=== PATIENT | female | born 1965 | race Caucasian/White ===

== ENCOUNTER 2020-02-17 07:39 | Inpatient (IN) ==
--- NOTE | 2020-02-11 16:18 | Anesthesiology Consultation ---
Date of Service February 11, 2020 Assessment & Plan (1) Encounter for pre-operative examination: Chart Review Chart Review: Acceptable Risk for Surgery (pending Covid testing) and Patient NOT seen in Pre Admission Testing - Check BSG AM DOS - Check test AM DOS Per nursing assessment, pt resides in [facility]. No known contact with PUIs or Covid positive people. No current Covid related symptoms or history of Covid testing. Will need Covid testing per guidelines before surgery. Seen by PCP 02/09/2020 =" she is medically cleared for the operation." History Surgery Operation Date: 02/17/20 10:05 Proposed Procedures p Right Anterior Total Hip Arthroplasty - Mauricio Leon DO Height/Weight Height: 5 ft 6 in Weight: 59.421 kg Allergies Allergy/AdvReac Type Severity Reaction Status Date / Time No Known Allergies Allergy Verified 02/10/20 15:04 Medications Home Medications Medication Instructions Recorded Confirmed Last Taken cholecalciferol (vitamin D3) 10,000 unit PO 3XWK 10/31/19 02/10/20 Unknown [Vitamin D3] ibuprofen 400 mg PO DAILY PRN 10/31/19 02/10/20 Unknown insulin aspart U-100 [Novolog 4 unit SUBCUT TID 10/31/19 02/10/20 Unknown U-100 Insulin aspart] insulin glargine [Lantus U-100 20 unit SUBCUT HS 10/31/19 02/10/20 Unknown Insulin] naproxen sodium [Aleve] 440 mg PO DAILY PRN 10/31/19 02/10/20 Unknown semaglutide [Ozempic] 0.5 mg SUBCUT QDD 10/31/19 02/10/20 Unknown turmeric root extract 500 mg PO 3XWK 10/31/19 02/10/20 Unknown vit C,Y-Uf-zhcty-lutein-zeaxan 1 tab PO 3XWK 10/31/19 02/10/20 Unknown [PreserVision AREDS-2] vitamin E 800 unit PO 3XWK 10/31/19 02/10/20 Unknown Past Medical History Medical History Cochlear hearing loss, bilateral Diabetes mellitus, type 2 Initially diagnosed with gestational diabetes/subsequent T2DM dx- IDDM Macular degeneration Osteoarthritis Past Family History Family History Aunt Family history of diabetes mellitus Past Surgical History Surgical History History of cochlear implant LEFT History of tonsillectomy and adenoidectomy Hx of section X3 Social History Smoking Status: Former smoker Hx Alcohol Use: Yes Alcohol type: beer alcohol intake frequency: a few times a week Hx Substance Use: No Testing Laboratory Results 02/09/20= WBC: 8.63 H/H: 13.6/41.7 PLATELETS: 249 SODIUM: 140 POTASSIUM: 4.5 CHLORIDE: 101 CO2: 27 BUN: 8 CREATININE: 0.7 GLUCOSE: 81 Electrocardiogram Date: 11/06/19 Findings: + NSR @ (80) Chest X-Ray Date: 11/06/19 Findings: + NAD Stress Test Date: 11/19/19 Type: DSE Resting EF: 55 to 59% Resting LV Function: normal Resting RWMA: + none Valvular Disease: no significant valvular disease Stress echo was negative for inducible ischemia. Stress EKG response showed no evidence of ischemia. Occasional PACs were noted during stress. Nonsustained supraventricular tachycardia was noted during stress. Borderline concentric LVH. EF with stress equals 85%.
--- NOTE | 2020-02-15 09:33 | History & Physical Report ---
Date of Service February 17, 2020 Assessment & Plan (1) Degenerative joint disease of right hip: I have indicated the patient for right anterior total hip replacement. The risks, benefits and complications of surgery were explained to the patient which include but not limited to infection, acute blood loss, DVT/PE, injury to nerves, vessels, bone, soft tissue, arthrofibrosis, chronic pain, failure of the prosthesis, hip dislocation, leg length discrepancy, need for additional surgery, cardiac and pulmonary events and . The patient wished to proceed with surgery and informed consent was obtained at this time. We will plan for 81mg ASA BID post-operatively for DVT prophylaxis. Upon discharge the patient will be discharged home with home health services. Appropriate clearances by PCP were obtained. History of Present Illness Chief Complaint: Right hip pain/AVN/djd Primary Care Provider: Ranjan Orozco MD The patient is a 54 year old female who presents with complaints of severe right hip pain, AVN/DJD. The patient has failed outpatient conservative treatments to this point which included NSAIDs and a home exercise/walking program. The patient's pain and limited function have progressed to the point where they severely hinder their activities of daily living and they no longer tolerate exercise programs. They are requesting to proceed with total hip replacement surgery. Allergies Allergy/AdvReac Type Severity Reaction Status Date / Time No Known Allergies Allergy Verified 02/17/20 08:08 Home Medications Home Medications Medication Instructions Recorded Confirmed Type cholecalciferol (vitamin D3) 10,000 unit PO 3XWK 10/31/19 02/12/20 History [Vitamin D3] ibuprofen 400 mg PO DAILY PRN 10/31/19 02/12/20 History insulin aspart U-100 [Novolog 4 unit SUBCUT TID 10/31/19 02/12/20 History U-100 Insulin aspart] insulin glargine [Lantus U-100 20 unit SUBCUT HS 10/31/19 02/12/20 History Insulin] naproxen sodium [Aleve] 440 mg PO DAILY PRN 10/31/19 02/12/20 History semaglutide [Ozempic] 0.5 mg SUBCUT QDD 10/31/19 02/12/20 History turmeric root extract 500 mg PO 3XWK 10/31/19 02/12/20 History vit C,E-Ws-zlygv-lutein-zeaxan 1 tab PO 3XWK 10/31/19 02/12/20 History [PreserVision AREDS-2] vitamin E 800 unit PO 3XWK 10/31/19 02/12/20 History Past Med/Surg History Medical History Cochlear hearing loss, bilateral Diabetes mellitus, type 2 Initially diagnosed with gestational diabetes/subsequent T2DM dx- IDDM Macular degeneration Osteoarthritis Surgical History History of cochlear implant LEFT History of tonsillectomy and adenoidectomy Hx of section X3 Family History Aunt Family history of diabetes mellitus Social History Preferred Language: Frisian Communication Ability: Impaired Communication Ability Comment: IMPAIRED HEARING-[id number] IMPLANT Stock Supervisor Required: No Beliefs That Will Affect Care: None Current Living Situation: Family Other Information That Helps Us Care for You: No Feels Safe at Home: Yes Safety Concerns: Feels Safe At This Time Smoking Status: Former smoker Do You Dip or Chew Tobacco: No ; Smoking End Date: QUIT 2007 ; Second Hand Exposure: Yes (FAMILY SMOKES) ; Hx Alcohol Use: Yes Alcohol type: beer Hx Substance Use: No Review of Systems Review of Systems: All systems reviewed & are unremarkable except as noted in HPI & below Constitutional: as per Subjective / HPI Physical Exam Physical Exam: RLE NVSI +EHL/FHL/TA/GS SILT grossly, +2 DP pulse, compartments soft NT, limited painful ROM of the hip, antalgic gait. Constitutional: WD/WN, vitals as above Eyes: PERRL, conjunctivae normal, anicteric sclerae ENMT: external ear and nose normal, oropharynx normal Neck: trachea midline, no thyromegaly Respiratory: normal respiratory effort, lungs clear to auscultation Cardiovascular: RRR, no murmur, no edema Gastrointestinal (Abdomen): normal bowel sounds, soft, nontender, no hepatosplenomegaly Musculoskeletal: no cyanosis or clubbing, extremities motor strength 5/5 Skin: no rashes, warm and dry Neurologic: patellar DTR's 2+ bilat, sensation intact Psychiatric: A+Ox3, euthymic affect Lymphatic: no cervical or axillary lymphadenopathy Results & Data Results & Data ([facility]) Diagnostic Findings Multiple views of the hip demonstrates severe DJD and AVN involving the femoral head with complete loss of the joint space. +osteophytes, +sclerosis, +subchondral cysts.
[~2020-02-17 07:39] MED LIST: ACETAMINOPHEN 500 MG TAB PO SCH; BUPIVACAINE 0.5 % 5 MG/1 ML PF 10ML VIAL ONE; CEFAZOLIN 1000MG 1,000 MG/7.5 ML SYR IV SCH; CeleBREX 200 MG CAP PO SCH; FAMOTIDINE 20 MG TAB PO SCH; LR 500ML BOLUS, THEN 15ML/HR IV SCH; METOCLOPRAMIDE HCL 10 MG TABLET PO SCH; ROPIVACAINE 0.5% HCL/PF 150 MG, BUPIVACAINE 0.5% MPF 30 ML, EPINEPHrine 30MG/30ML (OR U... INSTIL SCH; TRANEXAMIC ACID 1,000 MG **IV Intra-op IV SCH; TRANEXAMIC ACID 1,000 MG **IV Pre-op IV SCH; dexAMETHasone 4 MG TAB PO SCH
[2020-02-17 08:34] LABS: INR 1.1 (0.9-1.1); Prothrombin Time 11.2 Seconds (9.0-12.0)
[2020-02-17] MEDS ORDERED: PROPOFOL IV EMULSION 10 MG/ML 20 ML VIAL IV ONE (09:12)
[2020-02-17] MEDS ORDERED: MIDAZOLAM HCL 1 MG/ML 2ML VIAL ONE ×2 (09:12→09:13)
[2020-02-17] MEDS ORDERED: ORTHO JOINT ANESTHETIC ONE (09:44)
[2020-02-17] MEDS ORDERED: BACITRACIN INJ 50,000 UNIT VIAL ONE (09:44)
--- NOTE | 2020-02-17 09:46 | History & Physical Bridge Note ---
Date of Service February 17, 2020 History & Physical Bridge Note I have examined the patient, reviewed the History & Physical and in the interval since the performance of the History & Physical I have noted the following changes of clinical significance: no changes noted
[2020-02-17] MEDS ORDERED: ATROPINE SULFATE 0.1 MG/ML 10ML SYR IV PRN (10:14)
[2020-02-17] MEDS ORDERED: ePHEDrine sulfate 50 MG/ML AMP IV PRN (10:14)
--- NOTE | 2020-02-17 11:50 | Post Operative Brief Note ---
Immediate Post Op Note v1 Date of Surgery February 17, 2020 Pre & Post Diagnosis Operation Date: 02/17/20 09:35 Pre-Op Diagnosis: Right hip osteoarthritis Post-Op Diagnosis: Right hip osteoarthritis I identified the patient and participated in the time-out.: Yes Procedure Operation Date: 02/17/20 09:35 Actual Procedures p Right Anterior Total Hip Arthroplasty(Right) - Mauricio Leon DO Surgeon Mauricio Leon DO Yield Loss Inspector Jose Kohli Estimated Blood Loss 155 Findings Consistent with Post-Op Diagnosis Fluids 1300 cc LR Specimens femoral head Anesthesia Type Spinal MAC Complications none Disposition Disposition: Recovery Room Overlapping Procedure I was present for: the critical portions of procedure. I was immediately available: during the entire case. Back up surgeon: was not required during procedure.
--- NOTE | 2020-02-17 11:52 | Operative Report ---
Post Operative Report Pre & Post Diagnosis Operation Date: 02/17/20 09:35 Pre-Op Diagnosis: Right hip osteoarthritis Post-Op Diagnosis: Right hip osteoarthritis I identified the patient and participated in the time-out.: Yes Procedure Operation Date: 02/17/20 09:35 Actual Procedures p Right Anterior Total Hip Arthroplasty(Right) - Mauricio Leon DO Surgeon Mauricio Leon DO Car Salesperson Jose Kohli Estimated Blood Loss 155 Findings Consistent with Post-Op Diagnosis Fluids 1300 cc LR Specimens femoral head Anesthesia Type Spinal MAC Complications none Disposition Disposition: Recovery Room Indications The patient is a 54-year-old female who presents with severe progressive right hip AVN/DJD who has failed outpatient conservative treatments. I indicated the patient for a anterior total hip replacement and the risks and benefits were explained in detail which include but not limited to infection, bleeding, blood clot, damage to surrounding bone, nerves, vessels, soft tissue, hip dislocation, failure of the prosthesis, leg length discrepancy, need for additional surgery and . The patient agreed to proceed with replacement of the hip and informed consent was obtained. Appropriate clearances were obtained. Description of Procedure COMPONENTS USED: [employer]phT[employer] hip system: Acetabulum size 52, femur size 8 standard offset, femoral head 36+0, liner 5236, acetabular screw 25 mm x 1. DESCRIPTION OF PROCEDURE: Following satisfactory spinal anesthesia, the patient was placed supine on the OR table. The left leg was placed in the well leg kaur and the right leg in the traction device. The right leg was prepared with ChloraPrep and draped sterilely. A surgical timeout was performed, patient identified and site maryann verified. Appropriate antibiotics were given. A standard anterior approach in the interval between the sartorius and tensor muscles was performed. Dissection was carried down through subcutaneous tissues. Electrocautery was utilized for hemostasis. Circumflex femoral vessels were identified, tied and ligated. The anterior capsular fat pad was removed and the capsulotomy was performed revealing the arthritic femoral neck and head. A femoral neck cut was made with reciprocating saw and the bone fragments removed. The acetabular self-retraining retractor was placed. Acetabular reaming was completed under fluoroscopic guidance, a 52 shell was impacted into an anatomic position and secured with a dome screw. Local anesthetic was placed and following irrigation, the polyethylene liner was placed. The femur was placed into position of external rotation, extension and adduction. Femoral canal was prepared up to the size 8 standard offset. Trial reduction with a 36+0 neck length head showed good soft tissue tension, leg lengths restored, and good fit and fill of the proximal canal using fluoroscopic landmarks. The hip was dislocated. The trial component was removed. The final implant was placed. The hip was irrigated with sterile saline solution and reduced. A Betadine soak was performed. After 3 minutes, the hip was once more irrigated with copious sterile saline solution with bacitracin. Fior-incisional soft tissue was injected utilizing [place] [employer]omix which includes a combination of Ropivicaine 0.5% 150mg, Bupivicaine 0.5%/Epinephrine 1:200,000 30ml, Toradol 30mg, Dexamethasone 4mg, Ketamine 10mg, Clonidine 100mcg and NSS 30ml solution. The capsule was then closed with 1-0 Vicryl interrupted figure of eight sutures. The fascia was closed with a running suture of #1 Vicryl, the subcutaneous tissues with 2-0 Vicryl and the skin with a running subcuticular stitch of 3-0 V-Loc. Dermabond prineo and a dry dressing were applied. The patient tolerated the procedure well and was transported to PACU in stable condition. Due to the complex nature of the procedure, the entire surgery was performed with the operational assistance of Jose kohli PA-C. The botany laboratory assistant, under direct supervision, was involved in the actual performance of all aspects of the surgical procedure including patient positioning, hemostasis, tissue retraction, instrument management and wound closure. I attest to the content of the Intraoperative Record and any orders documented therein. Any exceptions are noted below.
[2020-02-17] MEDS ORDERED: ePHEDrine sulfate 50 MG/ML SYR ONE (11:53)
[2020-02-17] MEDS ORDERED: PHENYLEPHRINE 100MCG/ML 5ML SYR ONE (11:53)
--- NOTE | 2020-02-17 12:03 | Fluoroscopy Report ---
FL hip RT 1V HISTORY: 54 years-old Female RT ANTERIOR HIP right hip total joint arthroplasty COMPARISON: None TECHNIQUE: 2 spot fluoroscopic images of the right hip were obtained utilizing 39.8 seconds fluorosco py time FINDINGS: Right hip total joint arthroplasty demonstrates satisfactory alignment. No acute fracture or retained foreign body identified. Expected postoperative soft tissue swelling and deep tissue air. Degenerati ve changes of the pubic symphysis. Osteoarthritis of the left hip. IMPRESSION: Fluoroscopic assistance as above. Please see operative report for further details. ACT 112: Negative or not required by law. The above report was generated using voice recognition software. It may contain grammatical, syntax o r spelling errors. Electronically signed by: Andrews Sharp M.D. 02/17/2020 12:01 PM
--- NOTE | 2020-02-17 12:59 | XRay Report ---
XR hip 1V RT w pelvis CLINICAL HISTORY: Right hip arthroplasty COMPARISON: None. DISCUSSION: There are postsurgical changes of a total right hip arthroplasty. The acetabular femoral components appear well seated. There is no dislocation. There is gas present within the soft tissues consistent with recent surgery. There is an equivocal cystic lesion within either the left acetabulum or femoral head. This is not optimally evaluated on the current study. IMPRESSION: 1. Post surgical changes of a total right hip arthroplasty 2. Equivocal 2 cm cystic lesion of the left femoral head or acetabulum. ACT 112: Negative or not required by law. Electronically signed by: Tian Villegas M.D. 02/17/2020 12:58 PM
--- NOTE | 2020-02-17 13:14 | Anesthesiology Progress Note ---
Date of Service February 17, 2020 Anesthesia Post Procedure Vital Signs Vital Signs: Temp Pulse Pulse Resp BP Pulse Ox 02/17/20 12:35 36.8 C 79 16 105/62 100 02/17/20 12:25 80 16 104/66 100 02/17/20 12:15 87 16 103/65 100 02/17/20 12:06 36.7 C 96 H 16 98/61 L 99 02/17/20 08:11 36.9 C 90 18 116/72 97 Pain Intensity Right Hip: Pain Intensity: 3 Transfer of Care Handoff Completed per policy Notes Mental Status: alert / awake / arousable and participated in evaluation Nausea / Vomiting: adequately controlled Pain: adequately controlled Airway Patency, RR, SpO2: stable & adequate BP & HR: stable & adequate Hydration State: stable & adequate Neuraxial Anesthesia: was administered and sensory block is resolving Anesthetic Complications: no major complications apparent and Pt Satisfied with anesthetic care
[2020-02-17] MEDS ORDERED: MAGNESIUM HYDROXIDE SUSP 30 ML UDC PO PRN (13:16)
[2020-02-17] MEDS ORDERED: HYDROmorphone INJ 0.5 MG/0.5 ML SYR IV PRN (13:16)
[2020-02-17] MEDS ORDERED: ONDANSETRON INJ 2 MG/ML 2 ML VIAL IV PRN (13:16)
[2020-02-17] MEDS ORDERED: bisacodyL 10 MG SUPP PR PRN (13:16)
[2020-02-17] MEDS ORDERED: NALOXONE HCL 0.4 MG/1 ML VIAL/CARP IV PRN (13:16)
[2020-02-17] MEDS ORDERED: METOCLOPRAMIDE HCL INJ 5 MG/ML 2 ML VIAL IV PRN (13:16)
[2020-02-17] MEDS ORDERED: OXYCODONE HCL IR 5 MG TAB (IMMEDIATE RELEASE) PO PRN (13:16)
[2020-02-17] MEDS ORDERED: PHARMACY GLYCEMIC MGMT CONSULT PRN (13:38)
--- NOTE | 2020-02-17 13:52 | Pharmacy Report ---
Glycemic Control Consultation - Date of Service February 17, 2020 - Scope Scope: Glycemic Pharmacist consulted for glycemic control and to write orders per [facility] inpatient glycemic control protocol. - Objective Weight: 59.3 kg Accuchecks BSG (last 24hrs): 02/17/20 08:13 POC Glucose 177 H - Recent Pertinent Medications Outpatient Anti-diabetic Regimen: * Ozempic 0.5 mg SQ weekly, Lantus 20 units SQ HS, Novolog 4 units SQ AC (doesn't use consistently) * A1c = 6.7% on 11/06/19 (will order for tomorrow) Risk Factors for Insulin Resistance: * Steroids: Dexamethasone 8 mg PO x 1 pre-op * Recent Surgery: POD#0 R BECKY * Diet: T2DM - Assessment & Plan Assessment & Plan: ASSESSMENT: * 54 yo F admitted for a R BECKY * Pre-op BSG was 177 mg/dL and patient did received dexamethasone preop. Patient took 20 units of Lantus last evening. * Will give the patient 25 units of Lantus (1.3 x home dose) tonight to account for steroid induced hyperglycemia. Novolog will be started based on weight and stress of 3. PLAN FOR INPATIENT GLYCEMIC CONTROL: * ADA & AACE recommend a goal blood sugar range 140-180 mg/dl for the majority of critically ill & non-critically ill patients. However, more stringent targets may be selected in individual cases. Will utilize more stringent goal of 110-140mg/dl based on patient age & comorbidities. Additionally, tighter glycemic control is warranted to facilitate wound/infection healing. * Basal insulin * Lantus 25 units SQ HS x 1 * Bolus insulin * NovoLog per scale ACHS or Q6hrs while NPO * Goal Range: Low 110 mg/dL - High 140 mg/dL * Correction Factor: 25 mg/dL/unit * Nutritional / Prandial insulin per carb ratio of 1 unit per 9 grams CHO consumed * Please note that the plan above was derived based on current level of insulin resistance and hospital stress. These recommendations are appropriate for inpatient admission only. Plan of care upon discharge will need to be reassessed to avoid potential outpatient hypo/hyperglycemia. Thank you.
[2020-02-17] MEDS ORDERED: GLUCAGON FOR INJ 1 MG VIAL IM PRN (14:00)
[2020-02-17] MEDS ORDERED: GLUCOSE 40% GEL 15 GM TUBE PO PRN (14:00)
[2020-02-17] MEDS ORDERED: CARBOHYDRATES FOR HYPOGLYCEMIA PO PRN (14:00)
[2020-02-17] MEDS ORDERED: DEXTROSE 50% 50 ML SYRINGE IV PRN (14:00)
[2020-02-17] MEDS ORDERED: GLUCOSE 10 TABS/TUBE PO PRN (14:00)
[2020-02-17] MEDS: SODIUM CHLORIDE 0.9% 1000ML 1,000 ML IV SCH (14:19)
[2020-02-17] MEDS: KETOROLAC TROMETHAMINE 15 MG/ML VIAL IV SCH ×2 (14:19→20:44)
[2020-02-17] MEDS: CEFAZOLIN 1000MG 1,000 MG/7.5 ML SYR IV SCH ×2 (14:19→21:56)
[2020-02-17] MEDS: ACETAMINOPHEN 500 MG TAB PO SCH ×2 (14:19→21:56)
--- NOTE | 2020-02-17 14:42 | Orthopedic Progress Note ---
Date of Service February 17, 2020 Assessment & Plan (1) Degenerative joint disease of right hip: s/p Right anterior BECKY -ancef x 24 -DVT ppx: SCDs, TEDs, 81mg ASA BID -WBAT RLE -PT/OT -PO XR demonstrates well aligned well fixed total hip prothesis without fracture/dislocation -am labs -DC planning Admission and Anticipated Discharge Date Admission Date: February 17, 2020 Subjective Post Operative Progress Note Patient seen in PACU, comfortable, denies complaints, pain well controlled, no acute issues. Still feeling effects of spinal anesthesia. Review of Systems Review of Systems: All systems reviewed & are unremarkable except as noted in HPI & below Constitutional: as per Subjective / HPI Physical Exam Physical Exam: RLE PE limited secondary to spinal anesthesia, +2DP pulse, compartment soft NT, dressing cdi Constitutional: WD/WN, vitals as above Results & Data ([facility]) Vital Signs (Past 12 Hours) Vital Signs Temp Pulse Pulse Resp BP Pulse Ox 02/17/20 13:45 85 16 96/61 L 100 02/17/20 12:55 36.3 C L 86 18 105/70 99 02/17/20 12:35 36.8 C 79 16 105/62 100 02/17/20 12:25 80 16 104/66 100 02/17/20 12:15 87 16 103/65 100 02/17/20 12:06 36.7 C 96 H 16 98/61 L 99 02/17/20 08:11 36.9 C 90 18 116/72 97
[2020-02-17] MEDS: INSULIN ASPART 100 UNITS/ML 3 ML PEN SC SCH ×3 (14:45→20:55)
[2020-02-17] MEDS: ASPIRIN 81 MG ECTAB PO SCH (20:45)
[2020-02-17] MEDS: DOCUSATE SODIUM 100 MG CAP PO SCH (20:48)
[2020-02-17] MEDS ORDERED: INSULIN GLARGINE SOLOSTAR 100 UNITS/ML 3 ML PEN SC SCH (21:00)
[2020-02-17] MEDS ORDERED: SENNA 8.6 MG TAB PO SCH (21:00)
[2020-02-18] MEDS: SODIUM CHLORIDE 0.9% 1000ML 1,000 ML IV SCH (00:16)
[2020-02-18] MEDS: KETOROLAC TROMETHAMINE 15 MG/ML VIAL IV SCH ×2 (01:57→08:03)
[2020-02-18] MEDS: ACETAMINOPHEN 500 MG TAB PO SCH ×2 (05:47→13:34)
[2020-02-18 06:21] LABS: Basophils # (auto) 0.02 K/uL (0-0.2); Basophils % (auto) 0.2 %; Eosinophils # (auto) 0.01 K/uL (0-0.5); Eosinophils % (auto) 0.1 %; Hematocrit (blood only) 32.9 % (37-47); Hemoglobin 11.3 g/dL (12.0-16.0); Immature Granulocytes # (auto) 0.03 K/uL (0.00-0.02); Immature Granulocytes % (auto) 0.2 %; Lymphocytes # (auto) 1.66 K/uL (1.2-3.4); Lymphocytes % (auto) 13.4 %; Mean Corpuscular Hemoglobin 31.1 pg (25-34); Mean Corpuscular Hgb Conc 34.3 g/dL (32-36); Mean Corpuscular Volume 90.6 fL (80-100); Mean Platelet Volume 11.1 fL (7.4-10.4); Monocytes # (auto) 0.93 K/uL (0.11-0.59); Monocytes % (auto) 7.5 %; Neutrophils # (auto) 9.76 K/uL (1.4-6.5); Neutrophils % (auto) 78.6 %; Platelet Count 204 K/uL (130-400); RDW Coefficient of Variation 12.4 % (11.5-14.5); RDW Standard Deviation 41.1 fL (36.4-46.3); Red Blood Count 3.63 M/uL (4.2-5.4); White Blood Count 12.41 K/uL (4.8-10.8)
[2020-02-18 06:51] LABS: BUN Creatinine Ratio 12.3 (10-20); Calcium 8.5 mg/dl (8.5-10.1); Est GFR (African American) 98.2; Est GFR (Non-African American) 84.8; Potassium 3.8 mmol/L (3.5-5.1)
[2020-02-18] MEDS: ASPIRIN 81 MG ECTAB PO SCH (08:05)
[2020-02-18] MEDS: DOCUSATE SODIUM 100 MG CAP PO SCH (08:06)
--- NOTE | 2020-02-18 08:27 | Anesthesiology Progress Note ---
Date of Service February 18, 2020 Anesthesia Post Procedure Vital Signs Vital Signs: Temp Pulse Pulse Resp BP Pulse Ox 02/18/20 08:07 36.7 C 78 16 104/63 98 02/18/20 03:32 36.7 C 88 16 112/67 97 02/17/20 23:37 36.6 C 81 16 106/67 99 02/17/20 19:22 36.7 C 74 18 105/59 L 99 02/17/20 15:51 36.6 C 84 18 109/69 97 02/17/20 14:57 36.6 C 90 16 96/57 L 100 02/17/20 13:45 85 16 96/61 L 100 02/17/20 12:55 36.3 C L 86 18 105/70 99 02/17/20 12:35 36.8 C 79 16 105/62 100 02/17/20 12:25 80 16 104/66 100 02/17/20 12:15 87 16 103/65 100 02/17/20 12:06 36.7 C 96 H 16 98/61 L 99 Pain Intensity Right Hip: Pain Intensity: 2 Notes Mental Status: alert / awake / arousable and participated in evaluation Nausea / Vomiting: adequately controlled Pain: adequately controlled Airway Patency, RR, SpO2: stable & adequate BP & HR: stable & adequate Hydration State: stable & adequate Neuraxial Anesthesia: was administered and sensory block resolved Anesthetic Complications: no major complications apparent and Pt Satisfied with anesthetic care
[2020-02-18] MEDS: INSULIN ASPART 100 UNITS/ML 3 ML PEN SC SCH ×2 (08:52→13:37)
[2020-02-18] MEDS ORDERED: MULTIVITAMIN TAB PO SCH (09:00)
--- NOTE | 2020-02-18 13:53 | Orthopedic Progress Note ---
Date of Service February 18, 2020 Assessment & Plan (1) Degenerative joint disease of right hip: s/p Right anterior BECKY POD#1 -ancef x 24 -DVT ppx: SCDs, TEDs, 81mg ASA BID -WBAT RLE -PT/OT -PO XR demonstrates well aligned well fixed total hip prothesis without fracture/dislocation -am labs - hgb 11.3 -DC planning - home with HH Admission and Anticipated Discharge Date Admission Date: February 17, 2020 Subjective Post Operative Progress Note Patient seen sitting up in bed, comfortable, denies complaints, pain well controlled, no acute issues. Denies F/C/N/V/SOB/CP. Review of Systems Review of Systems: All systems reviewed & are unremarkable except as noted in HPI & below Constitutional: as per Subjective / HPI Physical Exam Physical Exam: RLE NVSI +EHL/FHL/TA/GS SILT grossly, +2 DP pulse, compartments soft NT, dressing cdi. Constitutional: WD/WN, vitals as above Results & Data ([facility]) Vital Signs (Past 12 Hours) Vital Signs Temp Pulse Resp BP Pulse Ox 02/18/20 08:07 36.7 C 78 16 104/63 98 02/18/20 03:32 36.7 C 88 16 112/67 97 Laboratory Results 02/18/20 02/18/20 02/18/20 Range/Units 12:21 08:14 05:38 WBC (4.8-10.8) K/uL RBC (4.2-5.4) M/uL Hgb (12.0-16.0) g/dL Hct (37-47) % MCV (80-100) fL MCH (25-34) pg MCHC (32-36) g/dL RDW Std Deviation (36.4-46.3) fL RDW Coeff of Millie (11.5-14.5) % Plt Count (130-400) K/uL MPV (7.4-10.4) fL Immature Gran % (Auto) % Neut % (Auto) % Lymph % (Auto) % Pine % (Auto) % Eos % (Auto) % Baso % (Auto) % Immature Gran # (Auto) (0.00-0.02) K/uL Neut # (Auto) (1.4-6.5) K/uL Lymph # (Auto) (1.2-3.4) K/uL Pine # (Auto) (0.11-0.59) K/uL Eos # (Auto) (0-0.5) K/uL Baso # (Auto) (0-0.2) K/uL Sodium 138 (136-145) mmol/L Potassium 3.8 (3.5-5.1) mmol/L Chloride 106 (98-107) mmol/L Carbon Dioxide 26 (21-32) mmol/L Anion Gap 5.0 (3-11) BUN 10 (7-18) mg/dl Creatinine 0.80 (0.6-1.2) mg/dl Est Cr Clr Drug Dosing 77.0 ml/min Est GFR ( Amer) 98.2 Est GFR (Non-Af Amer) 84.8 BUN/Creatinine Ratio 12.3 (10-20) Glucose 273 H (70-99) mg/dl POC Glucose 181 H 243 H (70-99) mg/dl Calcium 8.5 (8.5-10.1) mg/dl 02/18/20 02/17/20 02/17/20 Range/Units 05:38 20:31 20:29 WBC 12.41 H (4.8-10.8) K/uL RBC 3.63 L (4.2-5.4) M/uL Hgb 11.3 L (12.0-16.0) g/dL Hct 32.9 L (37-47) % MCV 90.6 (80-100) fL MCH 31.1 (25-34) pg MCHC 34.3 (32-36) g/dL RDW Std Deviation 41.1 (36.4-46.3) fL RDW Coeff of Millie 12.4 (11.5-14.5) % Plt Count 204 (130-400) K/uL MPV 11.1 H (7.4-10.4) fL Immature Gran % (Auto) 0.2 % Neut % (Auto) 78.6 % Lymph % (Auto) 13.4 % Pine % (Auto) 7.5 % Eos % (Auto) 0.1 % Baso % (Auto) 0.2 % Immature Gran # (Auto) 0.03 H (0.00-0.02) K/uL Neut # (Auto) 9.76 H (1.4-6.5) K/uL Lymph # (Auto) 1.66 (1.2-3.4) K/uL Pine # (Auto) 0.93 H (0.11-0.59) K/uL Eos # (Auto) 0.01 (0-0.5) K/uL Baso # (Auto) 0.02 (0-0.2) K/uL Sodium (136-145) mmol/L Potassium (3.5-5.1) mmol/L Chloride (98-107) mmol/L Carbon Dioxide (21-32) mmol/L Anion Gap (3-11) BUN (7-18) mg/dl Creatinine (0.6-1.2) mg/dl Est Cr Clr Drug Dosing ml/min Est GFR ( Amer) Est GFR (Non-Af Amer) BUN/Creatinine Ratio (10-20) Glucose (70-99) mg/dl POC Glucose 378 H* 388 H* (70-99) mg/dl Calcium (8.5-10.1) mg/dl 02/17/20 02/17/20 02/17/20 Range/Units 17:30 17:28 13:53 WBC (4.8-10.8) K/uL RBC (4.2-5.4) M/uL Hgb (12.0-16.0) g/dL Hct (37-47) % MCV (80-100) fL MCH (25-34) pg MCHC (32-36) g/dL RDW Std Deviation (36.4-46.3) fL RDW Coeff of Millie (11.5-14.5) % Plt Count (130-400) K/uL MPV (7.4-10.4) fL Immature Gran % (Auto) % Neut % (Auto) % Lymph % (Auto) % Pine % (Auto) % Eos % (Auto) % Baso % (Auto) % Immature Gran # (Auto) (0.00-0.02) K/uL Neut # (Auto) (1.4-6.5) K/uL Lymph # (Auto) (1.2-3.4) K/uL Pine # (Auto) (0.11-0.59) K/uL Eos # (Auto) (0-0.5) K/uL Baso # (Auto) (0-0.2) K/uL Sodium (136-145) mmol/L Potassium (3.5-5.1) mmol/L Chloride (98-107) mmol/L Carbon Dioxide (21-32) mmol/L Anion Gap (3-11) BUN (7-18) mg/dl Creatinine (0.6-1.2) mg/dl Est Cr Clr Drug Dosing ml/min Est GFR ( Amer) Est GFR (Non-Af Amer) BUN/Creatinine Ratio (10-20) Glucose (70-99) mg/dl POC Glucose 333 H* 376 H* 264 H (70-99) mg/dl Calcium (8.5-10.1) mg/dl
[2020-02-18] MEDS ORDERED: CeleBREX 200 MG CAP PO SCH (21:00)
[2020-02-18] MEDS ORDERED: INSULIN GLARGINE SOLOSTAR 100 UNITS/ML 3 ML PEN SC SCH (21:00)
--- NOTE | 2020-02-19 20:23 | Discharge Summary ---
Date of Service February 18, 2020 Admission HPI Per Admitting Provider The patient is a 54 year old female who presents with complaints of severe right hip pain, AVN/DJD. The patient has failed outpatient conservative treatments to this point which included NSAIDs and a home exercise/walking program. The patient's pain and limited function have progressed to the point where they severely hinder their activities of daily living and they no longer tolerate exercise programs. They are requesting to proceed with total hip replacement surgery. Principal Diagnosis Right anterior total hip replacement -right hip AVN/DJD Discharge Exam RLE NVSI +EHL/FHL/TA/GS SILT grossly, +2 DP pulse, compartments soft NT, dressing cdi. Constitutional WD/WN, vitals as above Discharge Data Allergies Allergy/AdvReac Type Severity Reaction Status Date / Time No Known Allergies Allergy Verified 02/17/20 08:08 Consultations 02/18/20 08:00 Consult Case Management - Discharge Planning Routine Procedures Performed Operation Date: 02/17/20 09:35 Actual Procedures p Right Anterior Total Hip Arthroplasty(Right) - Mauricio Leon DO Ordered Studies 02/17/20 09:35 FL fluoroscopy <1hr Routine FL hip RT 1V Routine Hospital Course (1) Degenerative joint disease of right hip: The patient is a 54 -year-old female who presents with long standing history of severe right hip AVN/DJD and failed outpatient conservative treatments. The patient's symptoms have progressed to the point where it has been difficult to perform even normal activities of daily living. I indicated the patient for a right anterior total hip arthroplasty, the risks, benefits and complications of the procedure include but not limited to infection, bleeding, damage to bone, nerves, vessels, surrounding soft tissue, may develop blood clots, loss of function, leg length discrepancy, dislocation, failure of the components, loosening of the components, the need for additional surgery and . The patient wished to proceed with surgery at this time and informed consent was obtained. Hospital Course: On 02/17/20 the patient was taken to the operating room, adequate anesthesia administered and underwent a right anterior total hip arthroplasty. The patient tolerated the procedure well and was taken to the PACU in stable condition. Post-operatively the patient was started on a DVT ppx medication and given appropriate IV antibiotics. Consults were placed to physical therapy, occupational therapy and case management. On POD#1, the patient did well overnight and their pain was well controlled. Labs were drawn and the Hgb was 11.3. The patient progressed well with PT. Dressings were changed at this time and the incision was clean, dry and intact. On POD#2, The patients hospital stay was relatively uneventful and they were deemed stable by the orthopedic team and consultants to be discharged home with HH on 02/18/20. Discharge Instructions: Upon discharge the patient may weight bear as tolerates through their operative extremity. They were instructed to keep the incision clean and dry at all times. The patient may shower but should not submerge the incision, avoid bathing, pools and hot tubes. The patient was given a script for pain medication and should take as instructed. The patient was given a script for DVT ppx 81mg ASA BID and should take as directed. The patient was instructed to not drive or travel for long distances until cleared to do so. If the patient develops any symptoms of fevers, chills, nausea, vomiting, increased redness, swelling, pain or drainage from the surgical site, they should notify the office and/or proceed to the nearest emergency room. The patient should follow up in 10-14 days after surgery for their routine post-operative follow-up appointment and should call the office to confirm the date and time. s/p Right anterior BECKY POD#1 -ancef x 24 -DVT ppx: SCDs, TEDs, 81mg ASA BID -WBAT RLE -PT/OT -PO XR demonstrates well aligned well fixed total hip prothesis without fracture/dislocation -am labs - hgb 11.3 -DC planning - home with Total Time Total Time Spent Total Time Spent (In Minutes): 30 Discharge Plan Discharge Items Patient Disposition: Home - Home Health Services Reason For Visit: RIGHT HIP OSTEOARTHRITIS Discharge Diagnosis: Right anterior total hip replacement Condition on Discharge: Good Activity: Per Instructions section Lifting: Wait until after follow-up appointment Bathing: Keep incision dry Bathing Comment: No bathing, pools or hot tubs. Sexual Activity: Wait until after follow-up appointment Exercise/Sports: Wait until after follow-up appointment Driving/Machine Use: No driving Weightbearing: Full weightbearing Non-emergency contact: Primary Care Provider and Surgeon Call non-emergency contact if: you have any medication questions, your symptoms worsen, your pain is not controlled, your pain is worsening, your pain is unusual for you, your pain is concerning for you, you have a fever, your rectal temperature is above 100.4, your temperature is above 101, your wound has increased redness, your wound has increased drainage and your wound pain has i ncreased Follow-up/Referrals: Radha Riddle, [Primary Care Provider] - Diet: Carb Consistent or DM2 Addtl Attending Provider Instructions: ACTIVITY RECOMMENDATIONS: SELF CARE INSTRUCTIONS AFTER TOTAL HIP REPLACEMENT : Direct Anterior Approach Until the incision and soft tissues around your hip have healed, there is a possibility that the hip prosthesis could dislocate. A. Hip flexion ( Up & Down out of chair or steps ) may be difficult. This is normal. B. Numbness in front of the thigh is also normal for a few weeks. C. Use hand rails when walking on stairs. D. Wear low heeled shoes with non-slip soles. E. Be sure that your floors are free of things that could trip you - throw rugs, electrical cords, small objects. Avoid wet and waxed floors, especially with crutches and canes. F. Try to walk several times a day with rest periods between. G. Continue with all the exercises taught to you in the hospital. Again, make walking a part of your daily routine. SPECIAL CARE INSTRUCTIONS: VERY IMPORTANT TO READ AND REVIEW A. You may still be at risk for phlebitis and blood clots. 1. Wear surgical stockings (NIMO hose) for 2 weeks after surgery to improve circulation and reduce swelling. 2. Take Aspirin 81mg twice daily for 4 weeks or as directed by your doctor. This is your blood thinner. 3. High risk patients may be prescribed a stronger blood thinner if necessary. 4. If you are on Coumadin normally, your family doctor/aircraft engine assembler should monitor your blood work. Expect a phone call the day of or the day after bloodwork is drawn to adjust your dosage. B. You must take antibiotics before having dental work, bladder, bowel and other surgery. Your doctor will provide you with a permanent card to carry describing precautions. C. Call [facility] if you have a fever, redness or swelling around the incision, cloudy drainage from incision, or sudden increase in pain in your hip, not relieved by your regular pain medication. D. Please call the office at if you have any concerns or questions about your operation or recovery. * YOU MAY SHOWER, NO TUB BATHS UNTIL CLEARED BY YOUR DOCTOR. - Keep an extra close eye on the top portion of your incision. Be sure to keep clean & dry. * WEAR NIMO HOSE 20 HOURS PER DAY FOR 2 WEEKS. * YOU MAY PROGRESS FROM A WALKER, TO A CANE, TO INDEPENDENT AT YOUR OWN PACE. * MOST PATIENTS WILL HAVE HOME NURSING FOR THERAPY. IF YOU DECIDE TO DO OUTPATIENT PHYSICAL THERAPY, PLEASE SCHEDULE THIS 3 TIMES PER WEEK. * DERMABOND Prineo- This is a mesh tape dressing that is covered with glue. It should remain in place until the incision is properly healed, usually 10-14 days. This dressing is designed to naturally slough off. You may trim the excess mesh tape as it peels off. Incision may be briefly wet in a shower. Dry immediately by blotting with a clean, dry towel. Do not bath or swim until instructed by your doctor. Do not scratch, rub, or pick at the dressing. Do not apply any topical ointments or lotions until dressing is completely removed and/or instructed by your doctor. There may be a small piece of suture material at one end of your incision. Do not pull or trim this. If it is bothersome or catching on clothing, you may cover it with a band-aid. FOLLOW UP VISIT: If appointment is not already scheduled: Please call [facility] to make a follow-up appointment for 2 weeks after your surgery at . FOLLOW UP WITH PCP WITHIN 1 WEEK IN REGARDS TO ELEVATED BLOOD GLUCOSE CHECKS WHILE ADMITTED TO HOSPITAL> Pending Studies at Discharge: No Stand-Alone Forms: My [facility], Smoking Cessation Medications and DC Order Prescriptions: New aspirin 81 mg Tablet,Delayed Release (Dr/Ec) 81 mg PO BID 28 Days Qty: 56 RF: 0 acetaminophen 500 mg Tablet 1,000 mg PO Q8 PRN (Reason: pain) Qty: 90 RF: 0 celecoxib [Celebrex] 200 mg Capsule 200 mg PO BID PRN (Reason: Pain/inflammation) Qty: 28 RF: 0 oxycodone 5 mg Tablet 5 mg PO Q6H MDD 4 tabs PRN (Reason: pain) Qty: 30 RF: 0 sennosides [Senokot] 8.6 mg Tablet 17.2 mg PO HS PRN (Reason: constipation) Qty: 28 RF: 0 Continued Lantus U-100 Insulin 100 unit/mL Solution 20 unit SUBCUT HS RF: 0 insulin aspart U-100 [Novolog U-100 Insulin aspart] 100 unit/mL Solution 4 unit SUBCUT TID RF: 0 vitamin E 400 unit Capsule 800 unit PO 3XWK RF: 0 cholecalciferol (vitamin D3) [Vitamin D3] 125 mcg (5,000 unit) Tablet 10,000 unit PO 3XWK RF: 0 turmeric root extract 500 mg Capsule 500 mg PO 3XWK RF: 0 PreserVision AREDS-2 [id number] Capsule 1 tab PO 3XWK RF: 0 Ozempic 0.25 mg or 0.5 mg(2 mg/1.5 mL) Pen Injector 0.5 mg SUBCUT QDD RF: 0 Discontinued naproxen sodium [Aleve] 220 mg Tablet 440 mg PO DAILY PRN (Reason: Pain) RF: 0 ibuprofen 200 mg Tablet 400 mg PO DAILY PRN (Reason: Pain) RF: 0 Discharge Orders: Discharge Order (Routine); Ordered 02/18/20 Ordered By: Mauricio Leon Admission Data Admit Date/Time: 02/17/20 12:07 Attending Provider: Mauricio Leon Admit Provider: Mauricio Leon Primary Care Provider: Radha Riddle Other Interventions: Discharge Summary Assessment (RN) Last Done: 02/18/20 14:10 DC Date/Time DO NOT enter until pt leaves facility: 02/18/20 15:52
== END 2020-02-18 15:52 | disposition home health service (06) | DRG 470 ==
LOC: ASU 07:39 → 3E 12:07
DX: M16.11 Unilateral primary osteoarthritis, right hip

== ENCOUNTER 2023-05-15 17:16 | Inpatient (IN) ==
[2023-05-15] MEDS ORDERED: SODIUM CHLORIDE 0.9% 1,000 ML IV ONE ×2 (18:09→19:17)
--- NOTE | 2023-05-15 18:18 | Emergency Department Note ---
Impression & Plan DKA (diabetic ketoacidosis) ADMIT ED Provider Note HPI: The patient is a 58-year-old female with history of type 2 diabetes, sensorineural hearing loss, presents emergency department with a chief complaint of altered mental status. Patient presents with her sister at the bedside, sister states that she was contacted earlier today by their mother stating that when she went to check on the patient (patient lives alone) the patient seemed to be altered. She was very sleepy appearing, patient sister then arrived at the house and was able to arouse her and she was able to ambulate to the car to come to the hospital to be assessed. On arrival here to the ED the patient is alert, she is able to read my lips and answer questions appropriately. Patient is hypertensive on arrival 168/89, she is otherwise hemodynamically stable. Blood sugar obtained on arrival is 370. ROS: - Per HPI Differential Diagnosis: Diabetic ketoacidosis, acute ischemic stroke, intr acranial hemorrhage, sepsis, UTI, pneumonia, amongst other potential pathologies. *Outpatient medications and allergy history reviewed. *Pertinent external medical records reviewed. PE: General: Listless appearing but alert to verbal stimuli, follows commands HEENT: Normocephalic, trachea midline Eyes: Extraocular eye movement is intact, no scleral erythema Pulmonary: Clear to auscultation bilaterally, no wheezing Cardio: Regular rate and rhythm GI: Abdomen is soft to palpation : No suprapubic tenderness MSK: No evidence of trauma or malformation of the extremities, no edema Skin: No evidence of rash Neuro: Alert, no focal deficits Psychiatric: Cooperative cardiac monitor technician: (As interpreted by myself): - An order was placed for continuous cardiac monitoring - Patient was noted to be in sinus rhythm with a rate of 90 EKG: (As interpreted by myself): Rate: 88 Rhythm: Normal sinus rhythm Intervals: Within normal limits ST changes: No ST elevation Time: 1824 Interventions provided in ED: -Normal saline bolus, cefepime, insulin gtt Medical Decision Making: Shortly after the patient arrived IV was established lab work ordered, patient was maintained on cardiac sonographer. Lab work shows a leukocytosis of 24.6, hemoglobin is normal, platelet count is slightly high at 513, venous blood gas does not show any evidence of acidosis, CMP shows hyperglycemia with blood sugar of 403, there is an elevation of anion gap at 17, serum bicarbonate level is normal at 23, troponin is also slightly elevated at 74, EKG reviewed by myself shows evidence of normal sinus rhythm without any acute ischemic changes. Patient denies any chest pain. Procalcitonin is also slightly elevated at 1.6 therefore patient was given prophylactic cefepime and blood cultures were ordered. CT imaging of the head was obtained that does not show any evidence of any acute intracranial process, urinalysis shows 3+ glucose, 3+ ketones, 2+ blood, nitrite negative, 1+ leukocyte Estrace with pyuria. There is contamination with epithelial cells. Chest x-ray does not show obvious pneumonia per my interpretation, patient was given prophylactic cefepime for possible urinary coverage or pneumonia. I discussed all the above findings with the patient's sister at the bedside, she is in agreement for the patient to be admitted. Patient is alert and understands that she will be admitted. Case was discussed with the on-call hospitalist for [facility] Dr. Cervantes, and the patient was placed for admission in stable condition. Consultants: Hospitalist, Dr. Cervantes Disposition discussion held by myself with: Patient and patient's sister * CRITICAL CARE TIME: ( 44 ) minutes -Stabilization of patient with lab work concerning for DKA requiring initiation of insulin drip, interpretation of diagnostic studies, time spent at the bedsid e, discussion with other physicians and arrangement of admission Diagnosis: 1. Diabetic ketoacidosis, acute 2. Lethargy, acute 3. Leukocytosis, acute 4. Ketonuria, acute 5. Elevated troponin, acute 6. Elevated procalcitonin level, acute 7. Uremia, acute Disposition: Admission George Almaraz DO Emergency Medicine Past Med/Surg History Medical History Cochlear hearing loss, bilateral Diabetes mellitus, type 2 Initially diagnosed with gestational diabetes/subsequent T2DM dx- IDDM Macular degeneration Osteoarthritis Sensorineural hearing loss (SNHL) of both ears Surgical History (Updated 05/30/22 @ 11:54 by Nuria Monroe, [facility]) History of cochlear implant LEFT History of tonsillectomy and adenoidectomy Hx of section X3 Uses cochlear implant left ear implanted ~ 2005 at [facility] Family History Aunt Family history of diabetes mellitus Social History Smoking Status: Unknown if ever smoked Second Hand Exposure: Yes (FAMILY SMOKES); Do You Dip or Chew Tobacco: No; Hx Alcohol Use: Yes Alcohol type: beer Hx Substance Use: No Preferred Language: Slovenian Communication Ability: Effective Communication Ability Comment: IMPAIRED HEARING-[id number] IMPLANT Teller Manager Required: No Beliefs That Will Affect Care: None Current Living Situation: Family Feels Safe at Home: Yes Assistive Devices: Walker Allergies Allergies Allergy/AdvReac Type Severity Reaction Status Date / Time No Known Allergies Allergy Verified 05/15/23 18:56 Home Meds Home Medications Medication Instructions Recorded Confirmed insulin glargine 100 unit/mL 20 unit subcut HS 10/31/19 05/15/23 subcutaneous solution (Lantus U-100 Insulin) atorvastatin 20 mg tablet 20 mg PO HS 05/15/23 05/15/23 empagliflozin 25 mg tablet 25 mg PO QAM 05/15/23 05/15/23 (Jardiance) losartan 25 mg tablet 25 mg PO QAM 05/15/23 05/15/23 metformin 500 mg tablet,extended 2,000 mg PO QAM 05/15/23 05/15/23 release 24 hr naproxen 500 mg tablet 500 mg PO BIDM 05/15/23 05/15/23 Results & Data (ED) Vital Signs Vital Signs - 24 hr 05/15/23 17:22 05/15/23 18:14 Temperature 36.8 C Temperature Source Temporal Artery Scan Pulse Rate 106 H Pulse Rate [Finger] 87 Respiratory Rate 18 16 Respiratory Effort / Characteristics Non-Labored Spontaneous Non-Labored Spontaneous Respiratory Depth Normal Normal Respiratory Pattern Regular Blood Pressure 136/74 Blood Pressure [Right Arm] 168/89 H Blood Pressure Mean 94 Blood Pressure Mean [Right Arm] 115 Blood Pressure Position Sitting Pulse Oximetry 97 96 Oxygen Delivery Method Room Air Room Air Sepsis Recent Fever Within 48 Hours No Sepsis New/Unexplained Change in Mental Status No Sepsis Action Taken by Nursing No Action Required Laboratory Data 05/15/23 17:55 05/15/23 17:55 Lab Results 05/15/23 05/15/23 05/15/23 Range/Units 17:25 17:55 17:55 WBC 24.61 H (4.8-10.8) K/ul RBC 4.11 L (4.20-5.40) M/uL Hgb 12.1 (12.0-16.0) g/dl Hct 36.4 L (37.0-47.0) % MCV 88.6 (80.0-100.0) fL MCH 29.4 (25.0-34.0) pg MCHC 33.2 (32.0-36.0) g/dL RDW Std Deviation 42.6 (36.4-46.3) fL RDW Coeff of Millie 13.2 (11.5-14.5) % Plt Count 513 H (130-400) K/uL MPV 10.8 (9.4-12.4) fL Immature Gran % (Auto) 1.3 % Neut % (Auto) 86.9 % Lymph % (Auto) 4.7 % [place] % (Auto) 6.9 % Eos % (Auto) 0.0 % Baso % (Auto) 0.2 % Neut # (Auto) 21.36 H (1.40-6.50) K/uL Lymph # (Auto) 1.15 L (1.20-3.40) K/uL [place] # (Auto) 1.70 H (0.11-0.59) K/uL Eos # (Auto) 0.01 (0.00-0.50) K/uL Baso # (Auto) 0.06 (0.00-0.20) K/uL Immature Gran # (Auto) 0.33 H (0.01-0.20) K/uL Polychromasia 1+ Echinocytes 1+ VBG pH (7.36-7.41) VBG pCO2 (38-50) mmHg VBG pO2 mmHg VBG HCO3 mmol/L VBG O2 Saturation % VBG Base Excess mEq/L Sodium 129 L (136-145) mmol/L Potassium 4.7 (3.5-5.1) mmol/L Chloride 89 L (98-107) mmol/L Carbon Dioxide 23 (21-32) mmol/L Anion Gap 17 H (3-11) BUN 28 H (6-23) mg/dl Creatinine 0.87 (0.6-1.2) mg/dl Est Cr Clr Drug Dosing Not Reportable Est GFR ( Amer) 86.3 ml/min Est GFR (Non-Af Amer) 74.5 ml/min BUN/Creatinine Ratio 32.2 H (10-20) Glucose 403 H* (70-99(Fasting)) mg/dl POC Glucose 370 H* (70-99) mg/dl Lactate (0.4-2.0) mmol/L Calcium 10.0 (8.6-10.3) mg/dl Total Bilirubin 0.5 (0.2-1.0) mg/dl AST 14 (13-39) U/L ALT 13 (7-52) U/L Alkaline Phosphatase 181 H (34-104) U/L Troponin I High Sens 74.1 H* (0-14) pg/ml Total Protein 7.5 (6.0-8.3) gm/dl Albumin 3.3 L (3.4-5.0) gm/dl Globulin 4.2 H (2.5-4.0) gm/dl Albumin/Globulin Ratio 0.8 L (0.9-2) Procalcitonin (0-0.5) ng/ml Urine Color Urine Appearance (Clear) Urine pH (4.5-7.5) Ur Specific Reading (1.000-1.030) Urine Protein (Negative) Urine Glucose (UA) (Negative) Urine Ketones (Negative) Urine Blood (Negative) Urine Nitrite (Negative) Urine Bilirubin (Negative) Urine Urobilinogen (Negative) Ur Leukocyte Esterase (Negative) Urine WBC (Auto) (0-5) /hpf Urine RBC (Auto) (0-4) /hpf U Hyaline Cast (Auto) (0-5) /lpf U Epithel Cells (Auto) (0-5) /lpf Urine Bacteria (Auto) (Negative) 05/15/23 05/15/23 05/15/23 Range/Units 17:55 20:55 20:55 WBC (4.8-10.8) K/ul RBC (4.20-5.40) M/uL Hgb (12.0-16.0) g/dl Hct (37.0-47.0) % MCV (80.0-100.0) fL MCH (25.0-34.0) pg MCHC (32.0-36.0) g/dL RDW Std Deviation (36.4-46.3) fL RDW Coeff of Millie (11.5-14.5) % Plt Count (130-400) K/uL MPV (9.4-12.4) fL Immature Gran % (Auto) % Neut % (Auto) % Lymph % (Auto) % [place] % (Auto) % Eos % (Auto) % Baso % (Auto) % Neut # (Auto) (1.40-6.50) K/uL Lymph # (Auto) (1.20-3.40) K/uL [place] # (Auto) (0.11-0.59) K/uL Eos # (Auto) (0.00-0.50) K/uL Baso # (Auto) (0.00-0.20) K/uL Immature Gran # (Auto) (0.01-0.20) K/uL Polychromasia Echinocytes VBG pH 7.36 (7.36-7.41) VBG pCO2 45 (38-50) mmHg VBG pO2 28 mmHg VBG HCO3 25 mmol/L VBG O2 Saturation < 60.0 % VBG Base Excess -0.4 mEq/L Sodium (136-145) mmol/L Potassium (3.5-5.1) mmol/L Chloride (98-107) mmol/L Carbon Dioxide (21-32) mmol/L Anion Gap (3-11) BUN (6-23) mg/dl Creatinine (0.6-1.2) mg/dl Est Cr Clr Drug Dosing Est GFR ( Amer) ml/min Est GFR (Non-Af Amer) ml/min BUN/Creatinine Ratio (10-20) Glucose (70-99(Fasting)) mg/dl POC Glucose (70-99) mg/dl Lactate 1.4 (0.4-2.0) mmol/L Calcium (8.6-10.3) mg/dl Total Bilirubin (0.2-1.0) mg/dl AST (13-39) U/L ALT (7-52) U/L Alkaline Phosphatase (34-104) U/L Troponin I High Sens (0-14) pg/ml Total Protein (6.0-8.3) gm/dl Albumin (3.4-5.0) gm/dl Globulin (2.5-4.0) gm/dl Albumin/Globulin Ratio (0.9-2) Procalcitonin 1.60 H (0-0.5) ng/ml Urine Color Urine Appearance (Clear) Urine pH (4.5-7.5) Ur Specific Reading (1.000-1.030) Urine Protein (Negative) Urine Glucose (UA) (Negative) Urine Ketones (Negative) Urine Blood (Negative) Urine Nitrite (Negative) Urine Bilirubin (Negative) Urine Urobilinogen (Negative) Ur Leukocyte Esterase (Negative) Urine WBC (Auto) (0-5) /hpf Urine RBC (Auto) (0-4) /hpf U Hyaline Cast (Auto) (0-5) /lpf U Epithel Cells (Auto) (0-5) /lpf Urine Bacteria (Auto) (Negative) 05/15/23 Range/Units Unknown WBC (4.8-10.8) K/ul RBC (4.20-5.40) M/uL Hgb (12.0-16.0) g/dl Hct (37.0-47.0) % MCV (80.0-100.0) fL MCH (25.0-34.0) pg MCHC (32.0-36.0) g/dL RDW Std Deviation (36.4-46.3) fL RDW Coeff of Millie (11.5-14.5) % Plt Count (130-400) K/uL MPV (9.4-12.4) fL Immature Gran % (Auto) % Neut % (Auto) % Lymph % (Auto) % [place] % (Auto) % Eos % (Auto) % Baso % (Auto) % Neut # (Auto) (1.40-6.50) K/uL Lymph # (Auto) (1.20-3.40) K/uL [place] # (Auto) (0.11-0.59) K/uL Eos # (Auto) (0.00-0.50) K/uL Baso # (Auto) (0.00-0.20) K/uL Immature Gran # (Auto) (0.01-0.20) K/uL Polychromasia Echinocytes VBG pH (7.36-7.41) VBG pCO2 (38-50) mmHg VBG pO2 mmHg VBG HCO3 mmol/L VBG O2 Saturation % VBG Base Excess mEq/L Sodium (136-145) mmol/L Potassium (3.5-5.1) mmol/L Chloride (98-107) mmol/L Carbon Dioxide (21-32) mmol/L Anion Gap (3-11) BUN (6-23) mg/dl Creatinine (0.6-1.2) mg/dl Est Cr Clr Drug Dosing Est GFR ( Amer) ml/min Est GFR (Non-Af Amer) ml/min BUN/Creatinine Ratio (10-20) Glucose (70-99(Fasting)) mg/dl POC Glucose (70-99) mg/dl Lactate (0.4-2.0) mmol/L Calcium (8.6-10.3) mg/dl Total Bilirubin (0.2-1.0) mg/dl AST (13-39) U/L ALT (7-52) U/L Alkaline Phosphatase (34-104) U/L Troponin I High Sens (0-14) pg/ml Total Protein (6.0-8.3) gm/dl Albumin (3.4-5.0) gm/dl Globulin (2.5-4.0) gm/dl Albumin/Globulin Ratio (0.9-2) Procalcitonin (0-0.5) ng/ml Urine Color Yellow Urine Appearance Cloudy A (Clear) Urine pH 5.5 (4.5-7.5) Ur Specific Reading 1.025 (1.000-1.030) Urine Protein 1+ H (Negative) Urine Glucose (UA) 3+ H (Negative) Urine Ketones 3+ H (Negative) Urine Blood 2+ H (Negative) Urine Nitrite Negative (Negative) Urine Bilirubin Negative (Negative) Urine Urobilinogen Negative (Negative) Ur Leukocyte Esterase 1+ H (Negative) Urine WBC (Auto) >30 H (0-5) /hpf Urine RBC (Auto) 0-4 (0-4) /hpf U Hyaline Cast (Auto) 1-5 (0-5) /lpf U Epithel Cells (Auto) 20-30 H (0-5) /lpf Urine Bacteria (Auto) 2+ H (Negative) Administered Medications Insulin Human Regular 250 (units/ Sodium Chloride) 250 mls @ 6.2 mls/hr IV .Q24H [facility]; Protocol Stop: 06/14/23 19:29 Last Titration: 05/15/23 21:12 Dose: 6.2 units/hr, 6.2 mls/hr Documented By: ACC Co-signed By: ISIDRO Admin: 05/15/23 20:16 Dose: 6.2 units/hr, 6.2 mls/hr Documented By: ACC Co-signed By: MARLENE Discontinued Medications Sodium Chloride (Nss 1000ml) 1,000 mls @ 999 mls/hr IV .Q1H1M ONE Stop: 05/15/23 19:09 Last Admin: 05/15/23 18:13 Dose: 999 mls/hr Documented By: Sodium Chloride (Nss 1000ml) 1,000 mls @ 999 mls/hr IV .Q1H1M ONE Stop: 05/15/23 20:17 Last Infusion: 05/15/23 20:17 Dose: 0 mls/hr Documented By: Admin: 05/15/23 20:17 Dose: 999 mls/hr Documented By: ACC Cefepime HCl (Maxipime) 2,000 mg in 20 mls @ 5 mls/min IV NOW STA; Protocol Stop: 05/15/23 20:02 Last Admin: 05/15/23 21:49 Dose: 5 mls/min Documented By: ACC Imaging Data Radiologist's Impression: Head CT 05/15/23 18:17 Exam(s): CT HEAD Without Contrast EXAM: CT Head Without Intravenous Contrast CLINICAL HISTORY: Reason for exam: AMS. TECHNIQUE: Axial computed tomography images of the head/brain without intravenous contrast. CTDI is 36 mGy and DLP is 546.36 mGy-cm. Automated exposure control was utilized for the study. A dose lowering technique was utilized adhering to the principles of ALARA. COMPARISON: No relevant prior studies available. FINDINGS: No acute intracranial hemorrhage. No midline shift or mass effect. The territorial oleary-white matter differentiation is maintained throughout. Age-related cerebral volume loss. Periventricular and subcortical white matter hypoattenuation, consistent with chronic microangiopathy. The visualized orbits appear grossly unremarkable. LEFT cochlear implant. The visualized paranasal sinuses and mastoid air cells are grossly clear. IMPRESSION: No acute intracranial hemorrhage, midline shift, or mass effect. LEFT cochlear implant. Electronically signed by: Jordi Randall MD 05/15/23 20:37 PM Discharge Plan Visit Data Chief Complaint: Hyperglycemia Stated Complaint: HIGH SUGAR, NOT MAKING SENSE ED Provider: George Almaraz Discharge Problem: DKA (diabetic ketoacidosis) Forms Stand Alone Forms: My [facility] [place] [facility] Prescriptions Prescriptions: No Action insulin glargine [Lantus U-100 Insulin] 100 unit/mL Solution 20 unit SUBCUT HS Rx Instructions: EXT MED HX--LAST FILLED 04/11/23 FOR 100 DAYS SUPPLY atorvastatin 20 mg tablet 20 mg PO HS Rx Instructions: EXT MED HX--LAST FILLED 01/05/23 FIR 90 DAYS SUPPLY losartan 25 mg tablet 25 mg PO QAM Rx Instructions: PER EXT MED HX--LAST FILLED 09/22/22 FOR 90 DAYS. metformin 500 mg tablet extended release 24 hr 2,000 mg PO QAM Rx Instructions: PER EXT MED HX--LAST FILLED 01/08/23 FOR 100 DAYS SUPPLY. naproxen 500 mg tablet 500 mg PO BIDM Rx Instructions: PER EXT MED HX--LAST FILLED 03/01/23 FOR 90 DAYS. Jardiance 25 mg tablet 25 mg PO QAM Rx Instructions: EXT MED HX--LAST FILLED 05/09/23 FOR 90 DAYS SUPPLY Referrals Referrals: Radha Riddle DO [Primary Care Provider] - DKA (diabetic ketoacidosis) Qualifiers: Diabetes mellitus complication detail: without coma
[2023-05-15 18:40] LABS: Hematocrit (blood only) 36.4 % (37.0-47.0); Hemoglobin 12.1 g/dl (12.0-16.0); Mean Corpuscular Hemoglobin 29.4 pg (25.0-34.0); Mean Corpuscular Hgb Conc 33.2 g/dL (32.0-36.0); Mean Corpuscular Volume 88.6 fL (80.0-100.0); Mean Platelet Volume 10.8 fL (9.4-12.4); Platelet Count 513 K/uL (130-400); RDW Coefficient of Variation 13.2 % (11.5-14.5); RDW Standard Deviation 42.6 fL (36.4-46.3); Red Blood Count 4.11 M/uL (4.20-5.40); White Blood Count 24.61 K/ul (4.8-10.8)
[2023-05-15 18:56] LABS: Basophils # (auto) 0.06 K/uL (0.00-0.20); Basophils % (auto) 0.2 %; Echinocytes 1+; Eosinophils # (auto) 0.01 K/uL (0.00-0.50); Immature Granulocytes # (auto) 0.33 K/uL (0.01-0.20); Immature Granulocytes % (auto) 1.3 %; Lymphocytes # (auto) 1.15 K/uL (1.20-3.40); Lymphocytes % (auto) 4.7 %; Monocytes % (auto) 6.9 %; Neutrophils # (auto) 21.36 K/uL (1.40-6.50); Neutrophils % (auto) 86.9 %; Polychromasia 1+
[2023-05-15 19:15] LABS: Alanine Aminotransferase 13 U/L (7-52); Albumin Globulin Ratio 0.8 (0.9-2); Albumin Level 3.3 gm/dl (3.4-5.0); Alkaline Phosphatase 181 U/L (34-104); Anion Gap 17 (3-11); Aspartate Aminotransferase 14 U/L (13-39); BUN Creatinine Ratio 32.2 (10-20); Bilirubin,Total 0.5 mg/dl (0.2-1.0); Blood Urea Nitrogen 28 mg/dl (6-23); Carbon Dioxide 23 mmol/L (21-32); Chloride 89 mmol/L (98-107); Est GFR (African American) 86.3 ml/min; Est GFR (Non-African American) 74.5 ml/min; Globulin 4.2 gm/dl (2.5-4.0); Glucose 403 mg/dl (70-99(Fasting)); Potassium 4.7 mmol/L (3.5-5.1); Sodium 129 mmol/L (136-145); Total Protein 7.5 gm/dl (6.0-8.3); Troponin I High Sensitivity 74.1 pg/ml (0-14)
[2023-05-15] MEDS ORDERED: GLUCOSE 40% GEL 15 GM TUBE PO PRN (19:17)
[2023-05-15] MEDS ORDERED: GLUCOSE 10 TAB/TUBE PO PRN (19:17)
[2023-05-15] MEDS ORDERED: GLUCAGON FOR INJ 1 MG VIAL SQ PRN (19:17)
[2023-05-15] MEDS ORDERED: STAT IV Infusion **Titration per Protocol STA ×2 (19:17→21:50)
[2023-05-15] MEDS ORDERED: CARBOHYDRATES FOR HYPOGLYCEMIA PO PRN (19:17)
[2023-05-15] MEDS ORDERED: DEXTROSE 50% 50 ML SYRINGE IV PRN (19:17)
[2023-05-15] MEDS ORDERED: INSULIN REGULAR 250 UNITS in SODIUM CHLORIDE 0.9% 247.5 ML IV SCH ×2 (19:30→22:00)
[2023-05-15] MEDS ORDERED: CEFEPIME 2,000 MG/20 ML VIAL IV STA (19:59)
--- NOTE | 2023-05-15 20:38 | CT Scan Report ---
Exam(s): CT HEAD Without Contrast EXAM: CT Head Without Intravenous Contrast CLINICAL HISTORY: Reason for exam: AMS. TECHNIQUE: Axial computed tomography images of the head/brain without intravenous contrast. CTDI is 36 mGy and DLP is 546.36 mGy-cm. Automated exposure control was utilized for the study. A dose lowering technique was utilized adhering to the principles of ALARA. COMPARISON: No relevant prior studies available. FINDINGS: No acute intracranial hemorrhage. No midline shift or mass effect. The territorial oleary-white matter differentiation is maintained throughout. Age-related cerebral volume loss. Periventricular and subcortical white matter hypoattenuation, consistent with chronic microangiopathy. The visualized orbits appear grossly unremarkable. LEFT cochlear implant. The visualized paranasal sinuses and mastoid air cells are grossly clear. IMPRESSION: No acute intracranial hemorrhage, midline shift, or mass effect. LEFT cochlear implant. Electronically signed by: Jordi Randall MD 05/15/23 20:37 PM
[2023-05-15 20:45] LABS: Appearance Urine Cloudy (Clear); Bacteria Urine Automated 2+ (Negative); Bilirubin Urine Negative (Negative); Blood Urine 2+ (Negative); Color Urine Yellow; Epithelial Cell Urine Auto 20-30 /lpf (0-5); Glucose Urine UA 3+ (Negative); Ketones Urine 3+ (Negative); Leukocyte Esterase Urine 1+ (Negative); Nitrite Urine Negative (Negative); Protein Urine 1+ (Negative); RBC Urine Automated 0-4 /hpf (0-4); Specific Gravity Urine 1.025 (1.000-1.030); Urobilinogen Urine Negative (Negative); WBC Urine Automated >30 /hpf (0-5); pH Urine 5.5 (4.5-7.5)
[2023-05-15] MEDS ORDERED: INSULIN ASPART PER UNIT CHARGE SC SCH (21:00)
[2023-05-15 21:12] LABS: Base Excess VBG -0.4 mEq/L; HCO3 VBG 25 mmol/L; Oxygen Saturation VBG < 60.0 %; PCO2 VBG 45 mmHg (38-50); PO2 VBG 28 mmHg; pH VBG 7.36 (7.36-7.41)
[2023-05-15] MEDS ORDERED: PHARMACY GLYCEMIC MGMT CONSULT PRN (21:50)
[2023-05-15] MEDS ORDERED: DKA GOAL RANGE 150-250 mg/dl ONE (21:50)
[2023-05-15] MEDS ORDERED: PENDING 1/2NSS+20mEq KCL IVF SCH (22:00)
[2023-05-15] MEDS ORDERED: SODIUM CHLORIDE 0.9% 1,000 ML IV SCH (22:00)
[2023-05-15] MEDS ORDERED: SODIUM CHLOR 0.45% + 20MEQ KCL 20 MEQ/1,000 ML BAG IV SCH (22:15)
--- NOTE | 2023-05-15 22:15 | History & Physical Report ---
Date of Service May 15, 2023 Assessment & Plan (1) AMS (altered mental status): Plan: 58-year-old female with past med significant type 2 diabetes, diabetic retinopathy, hyperlipidemia, hypertension, cochlear implant in place, was brought in because of altered mental status and found to have mild DKA and UTI. Altered mental status DKA UTI Elevated procalcitonin and leukocytosis CT head okay VBG okay We will monitor on telemetry floor DKA Insulin drip as per DKA protocol IV fluids as per protocol Close follow the labs Glycemic pharmacy consulted UTI Received cefepime in the ER which will be continued We will follow cultures Elevated troponin Troponin 74 EKG okay Most likely demand ischemia We will follow serial enzymes. Pseudohyponatremia From hyperglycemia We will follow the labs Hypertension On losartan We will monitor Hyperlipidemia On statin S/p cochlear implants DVT prophylaxis Lovenox Disposition telemetry floor Full code History of Present Illness Chief Complaint: Altered mental status and DKA and UTI Primary Care Provider: Radha Riddle DO 58-year-old female with past med significant type 2 diabetes, diabetic retinopathy, hyperlipidemia, hypertension, cochlear implant in place, was brought in because of altered mental status. Patient lives alone. Her mother went to check on her and patient seemed to be confused and she called her other daughter. Patient was sleepy but her sister was able to arouse her and able to walk to the car and brought to the ER. Patient has cochlear implant very hard of hearing. Says she is very tired and thirsty and sugars running high. Could not tell her name. Opening simple commands. Afebrile. Hemodynamically stable. Denies any headache or chest pain or shortness of breath. Denies abdominal pain. Says she is feeling fine, tired and thirsty. Cannot get much history from the patient. Past medical history as mentioned above Past surgical history , cochlear implant 2006, excision of sebaceous cyst on left upper lip, injection eye drug, laser surgery, tonsillectomy adenoidectomy, Social history lives alone. Quit smoking 2007 smoked 1 pack a day for 24 years. Alcohol social drinking. No drug use. Family history aunt has diabetes. Maternal grandmother had stroke. Father has hypertension. Allergies Allergy/AdvReac Type Severity Reaction Status Date / Time No Known Allergies Allergy Verified 05/15/23 18:56 Home Medications Medication Instructions Recorded Confirmed Type insulin glargine 100 unit/mL 20 unit subcut HS 10/31/19 05/15/23 History subcutaneous solution (Lantus U-100 Insulin) atorvastatin 20 mg tablet 20 mg PO HS 05/15/23 05/15/23 History empagliflozin 25 mg tablet 25 mg PO QAM 05/15/23 05/15/23 History (Jardiance) losartan 25 mg tablet 25 mg PO QAM 05/15/23 05/15/23 History metformin 500 mg tablet,extended 2,000 mg PO QAM 05/15/23 05/15/23 History release 24 hr naproxen 500 mg tablet 500 mg PO BIDM 05/15/23 05/15/23 History Past Med/Surg History Medical History Cochlear hearing loss, bilateral Diabetes mellitus, type 2 Initially diagnosed with gestational diabetes/subsequent T2DM dx- IDDM Macular degeneration Osteoarthritis Sensorineural hearing loss (SNHL) of both ears Surgical History (Updated 05/30/22 @ 11:54 by Nuria Monroe, [facility]) History of cochlear implant LEFT History of tonsillectomy and adenoidectomy Hx of section X3 Uses cochlear implant left ear implanted ~ 2005 at [facility] Family History Aunt Family history of diabetes mellitus Social History Smoking Status: Unknown if ever smoked Second Hand Exposure: Yes (FAMILY SMOKES); Do You Dip or Chew Tobacco: No; Hx Alcohol Use: Yes Alcohol type: beer Hx Substance Use: No Preferred Language: Cambodian Communication Ability: [facility] Communication Ability Comment: IMPAIRED HEARING-[id number] IMPLANT Barrel Rifler Broach Required: No Beliefs That Will Affect Care: None Current Living Situation: Family Feels Safe at Home: Yes Safety Concerns: Feels Safe At This Time Assistive Devices: Other Assistive Devices Comment: Chochlear implant Review of Systems Review of Systems: Unobtainable due to reduced consciousness Physical Exam Physical Exam: General- Not in distress Hard of hearing. Head- atraumatic Eyes- PERRL, EOMI, ENT- oropharynx dry. Neck- supple, no JVD, . Lungs- clear to auscultation no wheezing or crackles. Heart- regular rate and rhythm; no murmur, no gallop. Abdomen- normal bowel sounds, soft, nontender, no distension. Extremities- no pretibial edema, no erythema seen Neuro- alert, and awake seems confused. PERRL, EOMI; no facial palsy; no dysarthria;obeys simple commands, able sto squeeze hand and lift lower extremities. Skin- warm & dry Results & Data Results & Data Vital Signs (Past 12 Hours) Vital Signs Temp Pulse Pulse Resp BP BP Pulse Ox 05/15/23 18:14 87 16 168/89 H 96 05/15/23 17:22 36.8 C 106 H 18 136/74 97 O2 Del Method 05/15/23 18:14 Room Air 05/15/23 17:22 Room Air Diagnostic Findings Laboratory Results WBC 24.61 K/ul (4.8-10.8) H 05/15/23 17:55 RBC 4.11 M/uL (4.20-5.40) L 05/15/23 17:55 Hgb 12.1 g/dl (12.0-16.0) 05/15/23 17:55 Hct 36.4 % (37.0-47.0) L 05/15/23 17:55 MCV 88.6 fL (80.0-100.0) 05/15/23 17:55 MCH 29.4 pg (25.0-34.0) 05/15/23 17:55 MCHC 33.2 g/dL (32.0-36.0) 05/15/23 17:55 RDW Std Deviation 42.6 fL (36.4-46.3) 05/15/23 17:55 RDW Coeff of Millie 13.2 % (11.5-14.5) 05/15/23 17:55 Plt Count 513 K/uL (130-400) H 05/15/23 17:55 MPV 10.8 fL (9.4-12.4) 05/15/23 17:55 Immature Gran % (Auto) 1.3 % 05/15/23 17:55 Neut % (Auto) 86.9 % 05/15/23 17:55 Lymph % (Auto) 4.7 % 05/15/23 17:55 [place] % (Auto) 6.9 % 05/15/23 17:55 Eos % (Auto) 0.0 % 05/15/23 17:55 Baso % (Auto) 0.2 % 05/15/23 17:55 Neut # (Auto) 21.36 K/uL (1.40-6.50) H 05/15/23 17:55 Lymph # (Auto) 1.15 K/uL (1.20-3.40) L 05/15/23 17:55 [place] # (Auto) 1.70 K/uL (0.11-0.59) H 05/15/23 17:55 Eos # (Auto) 0.01 K/uL (0.00-0.50) 05/15/23 17:55 Baso # (Auto) 0.06 K/uL (0.00-0.20) 05/15/23 17:55 Immature Gran # (Auto) 0.33 K/uL (0.01-0.20) H 05/15/23 17:55 Polychromasia 1+ 05/15/23 17:55 Echinocytes 1+ 05/15/23 17:55 VBG pH 7.36 (7.36-7.41) 05/15/23 20:55 VBG pCO2 45 mmHg (38-50) 05/15/23 20:55 VBG pO2 28 mmHg 05/15/23 20:55 VBG HCO3 25 mmol/L 05/15/23 20:55 VBG O2 Saturation < 60.0 % 05/15/23 20:55 VBG Base Excess -0.4 mEq/L 05/15/23 20: Sodium 129 mmol/L (136-145) L 05/15/23 17:55 Potassium 4.7 mmol/L (3.5-5.1) 05/15/23 17:55 Chloride 89 mmol/L (98-107) L 05/15/23 17:55 Carbon Dioxide 23 mmol/L (21-32) 05/15/23 17:55 Anion Gap 17 (3-11) H 05/15/23 17:55 BUN 28 mg/dl (6-23) H 05/15/23 17:55 Creatinine 0.87 mg/dl (0.6-1.2) 05/15/23 17:55 Est Cr Clr Drug Dosing Not Reportable 05/15/23 17:55 Est GFR ( Amer) 86.3 ml/min 05/15/23 17:55 Est GFR (Non-Af Amer) 74.5 ml/min 05/15/23 17:55 BUN/Creatinine Ratio 32.2 (10-20) H 05/15/23 17:55 Glucose 403 mg/dl (70-99(Fasting)) H* 05/15/23 17:55 POC Glucose 370 mg/dl (70-99) H* 05/15/23 17:25 Lactate 1.4 mmol/L (0.4-2.0) 05/15/23 20:55 Calcium 10.0 mg/dl (8.6-10.3) 05/15/23 17:55 Total Bilirubin 0.5 mg/dl (0.2-1.0) 05/15/23 17:55 AST 14 U/L (13-39) 05/15/23 17:55 ALT 13 U/L (7-52) 05/15/23 17:55 Alkaline Phosphatase 181 U/L (34-104) H 05/15/23 17:55 Troponin I High Sens 74.1 pg/ml (0-14) H* 05/15/23 17:55 Total Protein 7.5 gm/dl (6.0-8.3) 05/15/23 17:55 Albumin 3.3 gm/dl (3.4-5.0) L 05/15/23 17:55 Globulin 4.2 gm/dl (2.5-4.0) H 05/15/23 17:55 Albumin/Globulin Ratio 0.8 (0.9-2) L 05/15/23 17:55 Procalcitonin 1.60 ng/ml (0-0.5) H 05/15/23 17:55 Urine Color Yellow 05/15/23 Unknown Urine Appearance Cloudy (Clear) A 05/15/23 Unknown Urine pH 5.5 (4.5-7.5) 05/15/23 Unknown Ur Specific [place] 1.025 (1.000-1.030) 05/15/23 Unknown Urine Protein 1+ (Negative) H 05/15/23 Unknown Urine Glucose (UA) 3+ (Negative) H 05/15/23 Unknown Urine Ketones 3+ (Negative) H 05/15/23 Unknown Urine Blood 2+ (Negative) H 05/15/23 Unknown Urine Nitrite Negative (Negative) 05/15/23 Unknown Urine Bilirubin Negative (Negative) 05/15/23 Unknown Urine Urobilinogen Negative (Negative) 05/15/23 Unknown Ur Leukocyte Esterase 1+ (Negative) H 05/15/23 Unknown Urine WBC (Auto) >30 /hpf (0-5) H 05/15/23 Unknown Urine RBC (Auto) 0-4 /hpf (0-4) 05/15/23 Unknown U Hyaline Cast (Auto) 1-5 /lpf (0-5) 05/15/23 Unknown U Epithel Cells (Auto) 20-30 /lpf (0-5) H 05/15/23 Unknown Urine Bacteria (Auto) 2+ (Negative) H 05/15/[address] 05/15/23 18:17 Exam(s): CT HEAD Without Contrast EXAM: CT Head Without Intravenous Contrast CLINICAL HISTORY: Reason for exam: AMS. TECHNIQUE: Axial computed tomography images of the head/brain without intravenous contrast. CTDI is 36 mGy and DLP is 546.36 mGy-cm. Automated exposure control was utilized for the study. A dose lowering technique was utilized adhering to the principles of ALARA. COMPARISON: No relevant prior studies available. FINDINGS: No acute intracranial hemorrhage. No midline shift or mass effect. The territorial oleary-white matter differentiation is maintained throughout. Age-related cerebral volume loss. Periventricular and subcortical white matter hypoattenuation, consistent with chronic microangiopathy. The visualized orbits appear grossly unremarkable. LEFT cochlear implant. The visualized paranasal sinuses and mastoid air cells are grossly clear. IMPRESSION: No acute intracranial hemorrhage, midline shift, or mass effect. LEFT cochlear implant. Electronically signed by: Jordi Randall MD 05/15/23 20:37 PM ECG Additional Comments: ECG normal sinus rhythm rate of 88. No significant change was found Code Status & VTE Plan VTE Prophylaxis Plan VTE Prophylaxis will be ordered: Yes
[2023-05-15 23:33] LABS: Influenza A virus by PCR Negative (Neg); Influenza B virus by PCR Negative (Neg); RSV by PCR Negative (Neg); SARS CoV2 RNA(COVID-19) Ceph NEGATIVE (Negative)
[2023-05-16] MEDS ORDERED: PENDING D5 1/2NS+20mEq KCL IVF SCH
[2023-05-16 00:14] LABS: Anion Gap 10 (3-11); BUN Creatinine Ratio 31.9 (10-20); Blood Urea Nitrogen 23 mg/dl (6-23); Calcium 8.7 mg/dl (8.6-10.3); Carbon Dioxide 24 mmol/L (21-32); Chloride 98 mmol/L (98-107); Est GFR (African American) 108.5 ml/min; Est GFR (Non-African American) 93.6 ml/min; Glucose 230 mg/dl (70-99(Fasting)); Magnesium 1.4 mg/dl (1.7-2.4); Phosphorus 1.9 mg/dl (2.5-4.9); Potassium 4.5 mmol/L (3.5-5.1); Sodium 132 mmol/L (136-145)
[2023-05-16] MEDS: D5W AND 1/2NSS + 20MEQ KCL 20 MEQ/1,000 ML BAG IV SCH ×2 (00:37→07:33)
[2023-05-16] MEDS ORDERED: ONDANSETRON INJ 2 MG/ML 2 ML VIAL IV PRN (00:52)
[2023-05-16] MEDS ORDERED: ACETAMINOPHEN 325 MG TAB PO PRN (00:52)
[2023-05-16] MEDS ORDERED: NITROGLYCERIN SL 0.4 MG/TAB TAB SL PRN (00:52)
[2023-05-16 02:41] LABS: BUN Creatinine Ratio 28.4 (10-20); Calcium 8.6 mg/dl (8.6-10.3); Creatinine Clr Calc Pharmacy 79.5 ml/min; Est GFR (Non-African American) 90.6 ml/min; Magnesium 1.4 mg/dl (1.7-2.4); Phosphorus 1.6 mg/dl (2.5-4.9); Potassium 4.2 mmol/L (3.5-5.1)
--- NOTE | 2023-05-16 07:22 | XRay Report ---
XR chest 1V portable HISTORY: 58 years-old Female AMS acutely altered mental status COMPARISON: Chest radiograph 11/06/2019 TECHNIQUE: AP view of the chest FINDINGS: Cardiomediastinal and hilar silhouettes are within normal limits. No pneumothorax, pleural effusion, airspace consolidation or overt pulmonary edema. Ill-defined right basilar opacities are favored to b e artifactual. Degenerative changes of the shoulders and spine. IMPRESSION: No acute process. ACT 112: Negative or not required by law. The above report was generated using voice recognition software. It may contain grammatical, syntax o r spelling errors. Electronically signed by: Genaro Sharp M.D. 05/16/2023 7:20 AM
[2023-05-16] MEDS: ENOXAPARIN INJ 40 MG/0.4 ML SYR SQ SCH (07:33)
[2023-05-16] MEDS: INSULIN ASPART PER UNIT CHARGE SC SCH ×5 (07:33→20:45)
[2023-05-16 08:01] LABS: BUN Creatinine Ratio 23.3 (10-20); Calcium 8.6 mg/dl (8.6-10.3); Creatinine Clr Calc Pharmacy 80.6 ml/min; Est GFR (African American) 106.7 ml/min; Est GFR (Non-African American) 92.1 ml/min
[2023-05-16 08:11] LABS: Estimated Average Glucose 206 mg/dl; Hemoglobin A1C 8.8 % (4.5-5.6)
[2023-05-16 08:31] LABS: Magnesium 1.5 mg/dl (1.7-2.4); Phosphorus 1.1 mg/dl (2.5-4.9)
[2023-05-16] MEDS ORDERED: MAGNESIUM SULFATE / D5W 1 GM/100 ML BAG IV ONE (08:54)
[2023-05-16] MEDS ORDERED: SODIUM PHOSPHATE 3 MMOL/1 ML INFUSION IV ONE ×2 (08:54→16:59)
[2023-05-16] MEDS ORDERED: SODIUM PHOSPHATE 21 MMOL in SODIUM CHLORIDE 0.9% 500 ML IV ONE (09:15)
[2023-05-16] MEDS: CEFEPIME 2,000 MG in SYRINGE 0 ML IV SCH ×2 (10:06→20:45)
[2023-05-16] MEDS: LOSARTAN POTASSIUM 25 MG TAB PO SCH (11:04)
[2023-05-16 11:16] LABS: Calcium 8.4 mg/dl (8.6-10.3); Magnesium 1.6 mg/dl (1.7-2.4); Potassium 3.9 mmol/L (3.5-5.1)
[2023-05-16 11:21] LABS: Est GFR (African American) 112.3 ml/min
[2023-05-16 11:22] LABS: BUN Creatinine Ratio 22.9 (10-20); Est GFR (Non-African American) 96.9 ml/min
[2023-05-16] MEDS ORDERED: LANTUS PER UNIT CHARGE SQ ONE (11:30)
[2023-05-16 11:33] LABS: Phosphorus 1.2 mg/dl (2.5-4.9)
--- NOTE | 2023-05-16 11:48 | Pharmacy Report ---
ED Pharmacist Progress Note - ED Pharmacist Progress Note Date of Service:: May 16, 2023 Notes:: ED charge nurse notified me of 1 set of positive blood culture with GNR, however the ED pharmacists triage/assess outpatient cultures, not ED inpatients. I relayed the message to Dr. Lebron, who acknowledged receipt of info at [id number].
[2023-05-16] MEDS: SODIUM CHLOR 0.45% + 20MEQ KCL 20 MEQ/1,000 ML BAG IV SCH ×2 (12:01→19:23)
--- NOTE | 2023-05-16 12:30 | Pharmacy Report ---
Pharmacy Glycemic Short Note 2 - Date of Service May 16, 2023 - Glycemic Short BSG Results (Last 24 hours): 05/15/23 05/15/23 05/15/23 17:25 17:55 20:10 Glucose 403 H* POC Glucose 370 H* 342 H* 05/15/23 05/15/23 05/15/23 21:08 22:15 23:16 Glucose POC Glucose 325 H* 292 H 217 H 05/15/23 05/16/23 05/16/23 23:40 00:24 01:26 Glucose 230 H POC Glucose 230 H 234 H 05/16/23 05/16/23 05/16/23 02:06 02:17 03:18 Glucose 249 H POC Glucose 220 H 252 H 05/16/23 05/16/23 05/16/23 04:22 05:23 06:25 Glucose POC Glucose 228 H 253 H 221 H 05/16/23 05/16/23 05/16/23 07:23 07:36 08:23 Glucose 243 H POC Glucose 228 H 220 H 05/16/23 05/16/23 05/16/23 09:30 10:27 10:54 Glucose 238 H POC Glucose 229 H 241 H 05/16/23 11:59 Glucose POC Glucose 243 H OUTPATIENT ANTIDIABETIC REGIMEN: * Lantus 20 units HS * metformin 2 gm PO qAM * Jardiance 25 mg PO qAM * HbA1C = 8.8% (05/15/23) ASSESSMENT: * Ms Santa is a 58 y/o F with a PMH of T2DM who presents with mild diabetic ketoacidosis. Patient started on insulin infusion with D51/2NS + 20 KCL @ 150 mL/hr. * Over 12 hours, patient averaging 40 units of insulin via infusion. This is also with dextrose infusion. * Per provider, patient to be transitioned to diet at lunchtime and dextrose infusion to be ceased. * Will start transition to SQ insulin. Lantus 30 units (slightly higher than home dose + full weight-based stress of 3) x 1. Re-evaluate tomorrow. Stop insulin infusion per protocol. * Novolog weight-based stress of 3 with dinner. Overnight checks added. PLAN FOR INPATIENT GLYCEMIC CONTROL: * Hold outpatient oral diabetes medications * Basal insulin * Lantus 30 units SQ x 1 + re-evaluate 05/17/23 * Bolus insulin * NovoLog per scale ACHS or Q6hrs while NPO * Goal Range: Low 110 mg/dL - High 140 mg/dL * Correction Factor: 25 mg/dL/unit * Nutritional / Prandial insulin per carb ratio of 1 unit per 9 grams CHO consumed
[2023-05-16 14:25] LABS: Calcium 8.4 mg/dl (8.6-10.3); Magnesium 1.8 mg/dl (1.7-2.4); Potassium 3.8 mmol/L (3.5-5.1)
[2023-05-16 14:31] LABS: BUN Creatinine Ratio 23.1 (10-20); Creatinine Clr Calc Pharmacy 90.5 ml/min; Est GFR (Non-African American) 99.2 ml/min; Phosphorus 2.1 mg/dl (2.5-4.9)
--- NOTE | 2023-05-16 16:10 | Electrocardiogram Report ---
Test Reason : Blood Pressure : / mmHG Vent. Rate : 088 BPM Atrial Rate : 088 BPM P-R Int : 148 ms QRS Dur : 084 ms QT Int : 348 ms P-R-T Axes : 072 059 061 degrees QTc Int : 421 ms Normal sinus rhythm Poor R wave progression, consider anterior KS vs. lead placement vs. LVH Abnormal ECG When compared with ECG of 06-NOV-2019 15:08, No significant change was found Confirmed by Mark Zavala ([id number]) on 05/16/2023 4:09:41 PM Referred By: REFERRED SELF Confirmed By:Alen Zavala
--- NOTE | 2023-05-16 17:00 | Hospitalist Progress Note ---
Date of Service May 16, 2023 Assessment & Plan (1) AMS (altered mental status): Plan: Patient is a 58 yr female with H/O Type 2 diabetes, diabetic retinopathy, hyperlipidemia, hypertension, cochlear implant in place, was brought in because of altered mental status and found to have mild DKA and UTI. Acute metabolic encephalopathy Secondary to DKA, UTI Elevated procalcitonin and leukocytosis on presentation CT head:No acute intracranial hemorrhage, midline shift, or mass effect. Mental status improving Monitor DKA H/O DM II HbA1c 8.8 Anion gap closed IV insulin transition to SQ per DKA protocol Continue IV fluids Appreciate glycemic pharmacist help Monitor BGs tobacco educator consulted as well UTI Gram-negative bacteremia Blood culture, urine culture growing gram-negative bacilli Continue IV cefepime for now Follow cultures Hypophosphatemia Hypomagnesemia Replete electrolytes as needed Elevated troponin Troponin 74 Most likely demand ischemia Patient denies any chest pain Trend Troponin Pseudohyponatremia Due to hyperglycemia Monitor Hypertension Continue losartan Monitor Hyperlipidemia On statin Chronic hearing impairment S/p cochlear implants DVT Px: Lovenox SQ Code Status Full code Admission and Anticipated Discharge Date Admission Date: May 15, 2023 Subjective Patient is seen and examined at bedside Poor historian secondary to significant hearing loss No distress on exam Denies any chest pain, dyspnea, dizziness Blood glucose levels improved Review of Systems Review of Systems: All systems reviewed & are unremarkable except as noted in Subjective Physical Exam Physical Exam: Physical Exam: Vitals signs as noted above General Appearance: Thin, frail, no apparent distress Head: normocephalic, Atraumatic Eyes: normal inspection, EOMI Neck: supple, Trachea midline Respiratory/Chest: Decreased breath sounds, CTA, No accessory muscle use Cardiovascular: S1, S2, No murmur Abdomen/GI:Soft, Non tender, Bowel sounds present Extremities/Musculoskeletal:normal inspection, no edema Neurologic/Psych:AAO, grossly no focal neurological deficits, + significant hearing impairment Skin: normal color, warm Results & Data Results & Data Vital Signs (Past 12 Hours) Vital Signs Temp Pulse Pulse Resp BP Pulse Ox O2 Del Method 05/16/23 13:43 36.8 C 85 18 131/70 95 Room Air 05/16/23 07:38 37.1 C 89 18 145/69 H 94 Room Air 05/16/23 07:28 96 H Laboratory Results Short CBC 05/15/23 Range/Units 17:55 WBC 24.61 H (4.8-10.8) K/ul Hgb 12.1 (12.0-16.0) g/dl Hct 36.4 L (37.0-47.0) % Plt Count 513 H (130-400) K/uL BMP 05/15/23 05/15/23 05/16/23 17:55 23:40 02:06 Sodium 129 L 132 L 133 L Potassium 4.7 4.5 4.2 Chloride 89 L 98 99 Carbon Dioxide 23 24 26 BUN 28 H 23 21 Creatinine 0.87 0.72 0.74 Glucose 403 H* 230 H 249 H Calcium 10.0 8.7 8.6 05/16/23 05/16/23 05/16/23 07:23 10:27 13:56 Sodium 134 L 134 L 135 L Potassium 4.0 3.9 3.8 Chloride 101 101 102 Carbon Dioxide 29 28 27 BUN 17 16 15 Creatinine 0.73 0.70 0.65 Glucose 243 H 238 H 165 H Calcium 8.6 8.4 L 8.4 L Liver Function 05/15/23 Range/Units 17:55 Total Bilirubin 0.5 (0.2-1.0) mg/dl AST 14 (13-39) U/L ALT 13 (7-52) U/L Alkaline Phosphatase 181 H (34-104) U/L Albumin 3.3 L (3.4-5.0) gm/dl Urine 05/15/23 Range/Units Unknown Urine Color Yellow Urine Appearance Cloudy A (Clear) Urine pH 5.5 (4.5-7.5) Ur Specific [place] 1.025 (1.000-1.030) Urine Protein 1+ H (Negative) Urine Glucose (UA) 3+ H (Negative)
[2023-05-16] MEDS ORDERED: SODIUM PHOSPHATE 12 MMOL in SODIUM CHLORIDE 0.9% 250 ML IV ONE (17:30)
[2023-05-16] MEDS ORDERED: DC IV INSULIN INFUSION 1 EA DEVI ONE (18:00)
[2023-05-16 18:28] LABS: BUN Creatinine Ratio 21.9 (10-20); Calcium 8.4 mg/dl (8.6-10.3); Creatinine Clr Calc Pharmacy 91.9 ml/min; Est GFR (African American) 115.6 ml/min; Est GFR (Non-African American) 99.8 ml/min; Magnesium 1.7 mg/dl (1.7-2.4); Phosphorus 2.2 mg/dl (2.5-4.9); Potassium 4.3 mmol/L (3.5-5.1)
[2023-05-16] MEDS: ATORVASTATIN 20 MG TAB PO SCH (20:44)
[2023-05-16 23:04] LABS: Troponin I High Sensitivity 15.5 pg/ml (0-14)
[2023-05-17] MEDS: INSULIN ASPART PER UNIT CHARGE SC SCH ×6 (00:15→20:52)
[2023-05-17] MEDS: SODIUM CHLOR 0.45% + 20MEQ KCL 20 MEQ/1,000 ML BAG IV SCH ×4 (05:10→23:45)
[2023-05-17] MEDS: ENOXAPARIN INJ 40 MG/0.4 ML SYR SQ SCH (05:38)
[2023-05-17 07:55] LABS: Basophils # (auto) 0.03 K/uL (0.00-0.20); Basophils % (auto) 0.2 %; Eosinophils # (auto) 0.09 K/uL (0.00-0.50); Eosinophils % (auto) 0.7 %; Hematocrit (blood only) 32.5 % (37.0-47.0); Hemoglobin 10.6 g/dl (12.0-16.0); Immature Granulocytes # (auto) 0.21 K/uL (0.01-0.20); Immature Granulocytes % (auto) 1.6 %; Lymphocytes # (auto) 1.32 K/uL (1.20-3.40); Mean Corpuscular Hgb Conc 32.6 g/dL (32.0-36.0); Monocytes # (auto) 0.89 K/uL (0.11-0.59); Monocytes % (auto) 6.8 %; Neutrophils # (auto) 10.64 K/uL (1.40-6.50); Neutrophils % (auto) 80.7 %; Platelet Count 435 K/uL (130-400); RDW Coefficient of Variation 12.7 % (11.5-14.5); RDW Standard Deviation 41.7 fL (36.4-46.3); Red Blood Count 3.65 M/uL (4.20-5.40); White Blood Count 13.18 K/ul (4.8-10.8)
[2023-05-17] MEDS ORDERED: LANTUS PER UNIT CHARGE SQ SCH (09:00)
[2023-05-17] MEDS ORDERED: SODIUM PHOSPHATE 3 MMOL/1 ML INFUSION IV ONE (09:25)
[2023-05-17] MEDS: CEFEPIME 2,000 MG in SYRINGE 0 ML IV SCH ×2 (09:34→18:22)
[2023-05-17] MEDS: LOSARTAN POTASSIUM 25 MG TAB PO SCH (09:37)
[2023-05-17] MEDS ORDERED: SODIUM PHOSPHATE 21 MMOL in SODIUM CHLORIDE 0.9% 500 ML IV ONE (09:45)
--- NOTE | 2023-05-17 16:24 | Hospitalist Progress Note ---
Date of Service May 17, 2023 Assessment & Plan (1) AMS (altered mental status): Plan: Patient is a 58 yr female with H/O Type 2 diabetes, diabetic retinopathy, hyperlipidemia, hypertension, cochlear implant in place, was brought in because of altered mental status and found to have mild DKA and UTI. Acute metabolic encephalopathy Secondary to DKA, UTI Elevated procalcitonin and leukocytosis on presentation CT head:No acute intracranial hemorrhage, midline shift, or mass effect. Mental status seem to be back to baseline Monitor DKA H/O DM II HbA1c 8.8 Anion gap closed IV insulin transition to SQ per DKA protocol Continue IV fluids Appreciate glycemic pharmacist help Monitor BGs breaker up consulted as well UTI Gram-negative bacteremia Blood culture growing gram-negative bacilli Urine culture grew E. coli Continue IV cefepime Hypophosphatemia Hypomagnesemia Replete electrolytes as needed Elevated troponin Troponin 74 Most likely demand ischemia Patient denies any chest pain Trend Troponin Pseudohyponatremia Due to hyperglycemia Monitor Hypertension Continue losartan Monitor Hyperlipidemia On statin Chronic hearing impairment S/p cochlear implants DVT Px: Lovenox SQ Code Status Full code Admission and Anticipated Discharge Date Admission Date: May 15, 2023 Subjective Patient is seen and examined at bedside Poor historian secondary to significant hearing loss Mental status seem to be back to baseline Patient states feeling better today Discussed with patient's son at bedside Denies any chest pain, dyspnea, dizziness Tolerating diet No other complaints Review of Systems Review of Systems: All systems reviewed & are unremarkable except as noted in Subjective Physical Exam Physical Exam: Physical Exam: Vitals signs as noted above General Appearance: Thin, frail, no apparent distress Head: normocephalic, Atraumatic Eyes: normal inspection, EOMI Neck: supple, Trachea midline Respiratory/Chest: Decreased breath sounds, CTA, No accessory muscle use Cardiovascular: S1, S2, No murmur Abdomen/GI:Soft, Non tender, Bowel sounds present Extremities/Musculoskeletal:normal inspection, no edema Neurologic/Psych:AAO, grossly no focal neurological deficits, + significant hearing impairment Skin: normal color, warm Results & Data Results & Data Vital Signs (Past 12 Hours) Vital Signs Pulse Pulse Pulse Resp BP BP Pulse Ox 05/17/23 16:16 84 05/17/23 14:31 05/17/23 14:17 88 14 104/57 L 96 05/17/23 11:00 05/17/23 11:00 92 H 18 110/65 97 05/17/23 07:13 82 05/17/23 07:00 82 19 115/68 O2 Del Method O2 Del Method 05/17/23 16:16 05/17/23 14:31 Room Air 05/17/23 14:17 Room Air 05/17/23 11:00 Room Air 05/17/23 11:00 Room Air 05/17/23 07:13 05/17/23 07:00 Room Air Laboratory Results Short CBC 05/17/23 Range/Units 07:32 WBC 13.18 H (4.8-10.8) K/ul Hgb 10.6 L (12.0-16.0) g/dl Hct 32.5 L (37.0-47.0) % Plt Count 435 H (130-400) K/uL BMP 05/16/23 17:57 Sodium 135 L Potassium 4.3 Chloride 102 Carbon Dioxide 26 BUN 14 Creatinine 0.64 Glucose 205 H Calcium 8.4 L
[2023-05-17] MEDS: ATORVASTATIN 20 MG TAB PO SCH (20:53)
[2023-05-18] MEDS: CEFEPIME 2,000 MG in SYRINGE 0 ML IV SCH (02:11)
[2023-05-18] MEDS ORDERED: SODIUM CHLORIDE 0.9% 1,000 ML IV ONE (03:34)
[2023-05-18] MEDS: MAGNESIUM SULFATE / D5W 1 GM/100 ML BAG IV SCH ×2 (03:48→05:49)
[2023-05-18] MEDS: SODIUM CHLOR 0.45% + 20MEQ KCL 20 MEQ/1,000 ML BAG IV SCH (04:01)
[2023-05-18 04:54] LABS: Basophils # (auto) 0.05 K/uL (0.00-0.20); Basophils % (auto) 0.5 %; Eosinophils # (auto) 0.12 K/uL (0.00-0.50); Eosinophils % (auto) 1.1 %; Hematocrit (blood only) 30.5 % (37.0-47.0); Hemoglobin 9.8 g/dl (12.0-16.0); Immature Granulocytes # (auto) 0.23 K/uL (0.01-0.20); Immature Granulocytes % (auto) 2.2 %; Lymphocytes # (auto) 1.58 K/uL (1.20-3.40); Lymphocytes % (auto) 15.1 %; Mean Corpuscular Hemoglobin 29.2 pg (25.0-34.0); Mean Corpuscular Hgb Conc 32.1 g/dL (32.0-36.0); Mean Corpuscular Volume 90.8 fL (80.0-100.0); Mean Platelet Volume 10.5 fL (9.4-12.4); Monocytes # (auto) 0.82 K/uL (0.11-0.59); Monocytes % (auto) 7.8 %; Neutrophils # (auto) 7.68 K/uL (1.40-6.50); Neutrophils % (auto) 73.3 %; Platelet Count 450 K/uL (130-400); RDW Coefficient of Variation 12.9 % (11.5-14.5); Red Blood Count 3.36 M/uL (4.20-5.40); White Blood Count 10.48 K/ul (4.8-10.8)
[2023-05-18 04:57] LABS: BUN Creatinine Ratio 13.9 (10-20); Creatinine Clr Calc Pharmacy 74.4 ml/min; Est GFR (Non-African American) 83.7 ml/min; Magnesium 1.7 mg/dl (1.7-2.4); Phosphorus 2.3 mg/dl (2.5-4.9)
[2023-05-18] MEDS: ENOXAPARIN INJ 40 MG/0.4 ML SYR SQ SCH (05:52)
[2023-05-18] MEDS: LOSARTAN POTASSIUM 25 MG TAB PO SCH (07:53)
[2023-05-18] MEDS: INSULIN ASPART PER UNIT CHARGE SC SCH ×4 (08:40→21:21)
[2023-05-18] MEDS ORDERED: LANTUS PER UNIT CHARGE SQ SCH (09:00)
[2023-05-18] MEDS: ADVANCED PROBIOTIC 1250 MG CAPSULE PO SCH (11:25)
[2023-05-18] MEDS: SODIUM CHLORIDE 0.9% 1,000 ML IV SCH ×2 (12:59→22:50)
[2023-05-18] MEDS: POT PHOSPHATE MONOBASIC W/ SOD TAB PO SCH ×3 (12:59→20:24)
[2023-05-18] MEDS: cefTRIAXone SODIUM 2,000 MG in DEXTROSE 5% 50 ML IV SCH (14:20)
--- NOTE | 2023-05-18 14:27 | Pharmacy Report ---
Pharmacy Glycemic Short Note 2 - Date of Service May 18, 2023 - Glycemic Short BSG Results (Last 24 hours): 05/17/23 05/17/23 05/18/23 16:19 20:16 04:05 Glucose 152 H POC Glucose 144 H 176 H 05/18/23 05/18/23 07:23 11:21 Glucose POC Glucose 159 H 254 H OUTPATIENT ANTIDIABETIC REGIMEN: * Lantus 20 units HS * metformin 2 gm PO qAM * Jardiance 25 mg PO qAM * HbA1C = 8.8% (05/15/23) ASSESSMENT: 05/18 * Patient received total of 44 units insulin yesterday, of which 25 units were basal insulin * Fasting BSG slightly above goal at 159 mg/dL - increased basal by ~10% * Continued same CF/CR - lunch time BSG elevated today, will likely need to tighten CR with breakfast tomorrow AM 05/16 * Ms Santa is a 58 y/o F with a PMH of T2DM who presents with mild diabetic k etoacidosis. Patient started on insulin infusion with D51/2NS + 20 KCL @ 150 mL/hr. * Over 12 hours, patient averaging 40 units of insulin via infusion. This is also with dextrose infusion. * Per provider, patient to be transitioned to diet at lunchtime and dextrose infusion to be ceased. * Will start transition to SQ insulin. Lantus 30 units (slightly higher than home dose + full weight-based stress of 3) x 1. Re-evaluate tomorrow. Stop insulin infusion per protocol. * Novolog weight-based stress of 3 with dinner. Overnight checks added. PLAN FOR INPATIENT GLYCEMIC CONTROL: * Hold outpatient oral diabetes medications * Basal insulin * Lantus 27 units daily * Bolus insulin * NovoLog per scale ACHS or Q6hrs while NPO * Goal Range: Low 110 mg/dL - High 140 mg/dL * Correction Factor: 25 mg/dL/unit * Nutritional / Prandial insulin per carb ratio of 1 unit per 9 grams CHO consumed
--- NOTE | 2023-05-18 18:42 | Hospitalist Progress Note ---
Date of Service May 18, 2023 Assessment & Plan (1) AMS (altered mental status): Plan: Patient is a 58 yr female with H/O Type 2 diabetes, diabetic retinopathy, hyperlipidemia, hypertension, cochlear implant in place, was brought in because of altered mental status and found to have mild DKA and UTI. Acute metabolic encephalopathy Secondary to DKA, UTI Elevated procalcitonin and leukocytosis on presentation CT head:No acute intracranial hemorrhage, midline shift, or mass effect. Mental status back to baseline Monitor DKA H/O DM II HbA1c 8.8 Anion gap closed IV insulin transitioned to SQ per DKA protocol Continue IV fluids Appreciate glycemic pharmacist help Monitor BGs hospital educator consulted as well Continue insulin per protocol UTI E coli bacteremia Blood culture/Urine culture grew E. coli Repeat blood cultures negative to date Continue IV cefepime>> transition to Rocephin Plan to discharge on ciprofloxacin to complete the course Hypophosphatemia Hypomagnesemia Replete electrolytes as needed Elevated troponin Troponin 74 Most likely demand ischemia Patient denies any chest pain Trend Troponin Pseudohyponatremia Due to hyperglycemia Monitor Hypertension Continue losartan Monitor Hyperlipidemia On statin Chronic hearing impairment S/p cochlear implants DVT Px: Lovenox SQ Code Status Full code Admission and Anticipated Discharge Date Admission Date: May 15, 2023 Subjective Patient is seen and examined at bedside Poor historian secondary to significant hearing loss States feeling much better today Reports improved energy She has no abdominal issues Offers no new complaints Denies any chest pain, dyspnea, dizziness Review of Systems Review of Systems: All systems reviewed & are unremarkable except as noted in Subjective Physical Exam Physical Exam: Physical Exam: Vitals signs as noted above General Appearance: Thin, frail, no apparent distress Head: normocephalic, Atraumatic Eyes: normal inspection, EOMI Neck: supple, Trachea midline Respiratory/Chest: Decreased breath sounds, CTA, No accessory muscle use Cardiovascular: S1, S2, No murmur Abdomen/GI:Soft, Non tender, Bowel sounds present Extremities/Musculoskeletal:normal inspection, no edema Neurologic/Psych:AAO, grossly no focal neurological deficits, + significant hearing impairment Skin: normal color, warm Results & Data Results & Data Vital Signs (Past 12 Hours) Vital Signs Temp Pulse Pulse Resp BP Pulse Ox O2 Del Method 05/18/23 07:30 Room Air 05/18/23 17:18 36.8 C 82 16 113/72 98 Room Air 05/18/23 16:35 85 05/18/23 10:37 36.7 C 81 19 94/61 L 97 Room Air 05/18/23 11:39 65 05/18/23 07:26 36.3 C L 75 17 117/68 95 Room Air Laboratory Results Short CBC 05/18/23 Range/Units 04:05 WBC 10.48 (4.8-10.8) K/ul Hgb 9.8 L (12.0-16.0) g/dl Hct 30.5 L (37.0-47.0) % Plt Count 450 H (130-400) K/uL BMP 05/18/23 04:05 Sodium 133 L Potassium 4.0 Chloride 105 Carbon Dioxide 25 BUN 11 Creatinine 0.79 Glucose 152 H Calcium 8.0 L
[2023-05-18] MEDS: ATORVASTATIN 20 MG TAB PO SCH (20:25)
[2023-05-19] MEDS: ENOXAPARIN INJ 40 MG/0.4 ML SYR SQ SCH (05:25)
[2023-05-19] MEDS ORDERED: INSULIN ASPART PER UNIT CHARGE SC SCH ×2 (07:30→11:30)
[2023-05-19 08:26] LABS: Hematocrit (blood only) 31.3 % (37.0-47.0); Hemoglobin 9.9 g/dl (12.0-16.0); Mean Corpuscular Hemoglobin 28.9 pg (25.0-34.0); Mean Corpuscular Hgb Conc 31.6 g/dL (32.0-36.0); Mean Corpuscular Volume 91.3 fL (80.0-100.0); Platelet Count 490 K/uL (130-400); RDW Standard Deviation 43.6 fL (36.4-46.3); Red Blood Count 3.43 M/uL (4.20-5.40); White Blood Count 10.29 K/ul (4.8-10.8)
[2023-05-19] MEDS: POT PHOSPHATE MONOBASIC W/ SOD TAB PO SCH ×2 (08:40→12:00)
[2023-05-19] MEDS: ADVANCED PROBIOTIC 1250 MG CAPSULE PO SCH (08:41)
[2023-05-19 08:44] LABS: BUN Creatinine Ratio 15.9 (10-20); Calcium 8.4 mg/dl (8.6-10.3); Creatinine Clr Calc Pharmacy 85.2 ml/min; Est GFR (African American) 112.8 ml/min; Est GFR (Non-African American) 97.3 ml/min; Magnesium 1.7 mg/dl (1.7-2.4); Phosphorus 2.4 mg/dl (2.5-4.9); Potassium 3.4 mmol/L (3.5-5.1)
[2023-05-19] MEDS ORDERED: POTASSIUM CHLORIDE CRTAB 20 MEQ TABCR PO ONE (10:10)
[2023-05-19] MEDS ORDERED: MAGNESIUM CHLORIDE W/CALCIUM 64MG DELAYED REL TAB PO SCH (10:30)
[2023-05-19] MEDS ORDERED: LANTUS PER UNIT CHARGE SQ ONE (11:30)
[2023-05-19] MEDS: cefTRIAXone SODIUM 2,000 MG in DEXTROSE 5% 50 ML IV SCH (13:23)
--- NOTE | 2023-05-19 14:20 | Hospitalist Progress Note ---
Date of Service May 19, 2023 Assessment & Plan (1) AMS (altered mental status): Plan: Patient is a 58 yr female with H/O Type 2 diabetes, diabetic retinopathy, hyperlipidemia, hypertension, cochlear implant in place, was brought in because of altered mental status and found to have mild DKA and UTI. Acute metabolic encephalopathy Secondary to DKA, UTI Elevated procalcitonin and leukocytosis on presentation CT head:No acute intracranial hemorrhage, midline shift, or mass effect. Mental status back to baseline Monitor DKA H/O DM II HbA1c 8.8 Anion gap closed IV insulin transitioned to SQ per DKA protocol Received IV fluids Appreciate glycemic pharmacist help Monitor BGs educator senior clinical consulted as well Continue insulin per protocol Plan to discontinue Jardiance due to UTI Will increase Lantus to 25 units daily UTI E coli bacteremia Blood culture/Urine culture grew E. coli Repeat blood cultures negative to date Continue IV cefepime>> transition to Rocephin Plan to discharge on ciprofloxacin to complete the course Hypophosphatemia Hypomagnesemia Replete electrolytes as needed Elevated troponin Troponin 74 Most likely demand ischemia Patient denies any chest pain Trend Troponin Pseudohyponatremia Due to hyperglycemia Monitor Hypertension Continue losartan Monitor Hyperlipidemia On statin Chronic hearing impairment S/p cochlear implants DVT Px: Lovenox SQ Code Status Full code Disposition Home with Home Health Admission and Anticipated Discharge Date Admission Date: May 15, 2023 Subjective Patient is seen and examined at bedside Poor historian secondary to significant hearing loss States feeling well No new complaints Denies any chest pain, dyspnea, dizziness Plan to discharge home today Review of Systems Review of Systems: All systems reviewed & are unremarkable except as noted in Subjective Physical Exam Physical Exam: Physical Exam: Vitals signs as noted above General Appearance: Thin, frail, no apparent distress Head: normocephalic, Atraumatic Eyes: normal inspection, EOMI Neck: supple, Trachea midline Respiratory/Chest: Decreased breath sounds, CTA, No accessory muscle use Cardiovascular: S1, S2, No murmur Abdomen/GI:Soft, Non tender, Bowel sounds present Extremities/Musculoskeletal:normal inspection, no edema Neurologic/Psych:AAO, grossly no focal neurological deficits, + significant hearing impairment Skin: normal color, warm Results & Data Results & Data Vital Signs (Past 12 Hours) Vital Signs Temp Pulse Pulse Pulse Resp BP BP 05/19/23 10:49 36.8 C 77 17 112/71 05/19/23 07:20 37.0 C 72 19 114/70 05/19/23 07:45 75 05/19/23 03:36 37.1 C 75 16 107/64 Pulse Ox O2 Del Method 05/19/23 10:49 97 Room Air 05/19/23 07:20 96 Room Air 05/19/23 07:45 05/19/23 03:36 97 Room Air Laboratory Results Short CBC 05/19/23 Range/Units 08:04 WBC 10.29 (4.8-10.8) K/ul Hgb 9.9 L (12.0-16.0) g/dl Hct 31.3 L (37.0-47.0) % Plt Count 490 H (130-400) K/uL BMP 05/19/23 08:04 Sodium 138 Potassium 3.4 L Chloride 107 Carbon Dioxide 27 BUN 11 Creatinine 0.69 Glucose 113 H Calcium 8.4 L
--- NOTE | 2023-05-19 14:44 | Discharge Summary ---
Date of Service May 19, 2023 Admission HPI Per Admitting Provider 58-year-old female with past med significant type 2 diabetes, diabetic retinopathy, hyperlipidemia, hypertension, cochlear implant in place, was brought in because of altered mental status. Patient lives alone. Her mother went to check on her and patient seemed to be confused and she called her other daughter. Patient was sleepy but her sister was able to arouse her and able to walk to the car and brought to the ER. Patient has cochlear implant very hard of hearing. Says she is very tired and thirsty and sugars running high. Could not tell her name. Opening simple commands. Afebrile. Hemodynamically stable. Denies any headache or chest pain or shortness of breath. Denies abdominal pain. Says she is feeling fine, tired and thirsty. Cannot get much history from the patient. Past medical history as mentioned above Past surgical history , cochlear implant 2006, excision of sebaceous cyst on left upper lip, injection eye drug, laser surgery, tonsillectomy adenoidectomy, Social history lives alone. Quit smoking 2007 smoked 1 pack a day for 24 years. Alcohol social drinking. No drug use. Family history aunt has diabetes. Maternal grandmother had stroke. Father has hypertension. Admission Exam Per Admitting Provider General- Not in distress Hard of hearing. Head- atraumatic Eyes- PERRL, EOMI, ENT- oropharynx dry. Neck- supple, no JVD, . Lungs- clear to auscultation no wheezing or crackles. Heart- regular rate and rhythm; no murmur, no gallop. Abdomen- normal bowel sounds, soft, nontender, no distension. Extremities- no pretibial edema, no erythema seen Neuro- alert, and awake seems confused. PERRL, EOMI; no facial palsy; no dysarthria;obeys simple commands, able sto squeeze hand and lift lower extremities. Skin- warm & dry Principal Diagnosis Acute metabolic encephalopathy Diabetic ketoacidosis Urinary tract infection E. coli bacteremia Discharge Data Allergies Allergy/AdvReac Type Severity Reaction Status Date / Time No Known Allergies Allergy Verified 05/15/23 18:56 Consultations 05/15/23 20:47 ED Decision to Admit Stat Ordered Studies 05/15/23 18:17 CT head/brain wo con Stat Hospital Course (1) AMS (altered mental status): Patient is a 58 yr female with H/O Type 2 diabetes, diabetic retinopathy, hyperlipidemia, hypertension, cochlear implant in place, was brought in because of altered mental status and found to have mild DKA and UTI. Acute metabolic encephalopathy Secondary to DKA, UTI Elevated procalcitonin and leukocytosis on presentation CT head:No acute intracranial hemorrhage, midline shift, or mass effect. Mental status back to baseline Monitor DKA H/O DM II HbA1c 8.8 Anion gap closed IV insulin transitioned to SQ per DKA protocol Received IV fluids Appreciate glycemic pharmacist help Monitor BGs clinical informatics educator consulted as well Continue insulin per protocol Plan to discontinue Jardiance due to UTI Will increase Lantus to 25 units daily UTI E coli bacteremia Blood culture/Urine culture grew E. coli Repeat blood cultures negative to date Continue IV cefepime>> transition to Rocephin Plan to discharge on ciprofloxacin to complete the course Hypophosphatemia Hypomagnesemia Replete electrolytes as needed Elevated troponin Troponin 74 Most likely demand ischemia Patient denies any chest pain Trend Troponin Pseudohyponatremia Due to hyperglycemia Monitor Hypertension Continue losartan Monitor Hyperlipidemia On statin Chronic hearing impairment S/p cochlear implants DVT Px: Lovenox SQ Code Status Full code Disposition Home with Home Health Total Time Total Time Spent Total Time Spent (In Minutes): 57 minutes Discharge Plan Discharge Items Patient Disposition: Home - Home Health Services Reason For Visit: AMS,DKA Discharge Diagnosis: Acute metabolic encephalopathy Diabetic ketoacidosis Urinary tract infection E. coli bacteremia Activity: Per Instructions section Exercise/Sports: Wait until after follow-up appointment Non-emergency contact: Primary Care Provider Call non-emergency contact if: you have any medication questions, your symptoms worsen, your pain is concerning for you and you have a fever Follow-up/Referrals: Radha Riddle DO [Primary Care Provider] - Diet: Carb Consistent or DM2 and Heart Healthy Addtl Attending Provider Instructions: Follow-up with your primary care physician Dr. Riddle in 1 week --Complete the antibiotic course ciprofloxacin for urinary tract infection as prescribed. --Your final blood cultures are pending at the time of discharge. Follow-up with your physician for results. -- Other medication changes --Jardiance was discontinued as you have urinary tract infection Will increase your Lantus to 25 units daily. (Next dose tonight (05/19/23) take Lantus 10 units and starting tomorrow 9/10/23--Take Lantus 25 units at bedtime. ) -- Discuss with your primary care physician for further medication adjustments for management of your diabetes mellitus as needed. -- Hold taking losartan for now as your blood pressure has been running low while you are hospitalized. Discuss with your physician for further recommendations. Seek immediate medical attention if your symptoms reoccur or worsen Please take all medications as instructed on discharge list below. Please call if you have any questions or problems. You can reach a [facility] hospitalist on duty at [facility] 24 hours a day by calling [phone] Pending Studies at Discharge: Yes Studies:: Blood Cultures Stand-Alone Forms: My [facility], Smoking Cessation Medications and DC Order Prescriptions: New Mag 64 64 mg Tablet,Delayed Release (Dr/Ec) 64 mg PO BID Qty: 14 0RF Phospha 250 Neutral 250 mg Tablet 1 tab PO QID 7 Days Qty: 28 0RF Advanced Probiotic 625 mg (10 billion cell) Capsule 2 cap PO DAILY Qty: 30 0RF ciprofloxacin HCl 750 mg tablet 750 mg PO BID Qty: 14 0RF Rx Instructions: Start taking from 05/20/23 Continued atorvastatin 20 mg tablet 20 mg PO HS Rx Instructions: EXT MED HX--LAST FILLED 01/05/23 FIR 90 DAYS SUPPLY metformin 500 mg tablet extended release 24 hr 2,000 mg PO QAM Rx Instructions: PER EXT MED HX--LAST FILLED 01/08/23 FOR 100 DAYS SUPPLY. naproxen 500 mg tablet 500 mg PO BIDM Rx Instructions: PER EXT MED HX--LAST FILLED 03/01/23 FOR 90 DAYS. Changed insulin glargine [Lantus U-100 Insulin] 100 unit/mL Solution 25 unit SUBCUT HS Qty: 10 0RF Rx Instructions: EXT MED HX--LAST FILLED 04/11/23 FOR 100 DAYS SUPPLY Held losartan 25 mg tablet 25 mg PO QAM Hold Instructions: To be determined by your Primary Care physician Rx Instructions: PER EXT MED HX--LAST FILLED 09/22/22 FOR 90 DAYS. Discontinued Jardiance 25 mg tablet 25 mg PO QAM Rx Instructions: EXT MED HX--LAST FILLED 05/09/23 FOR 90 DAYS SUPPLY Discharge Orders: Discharge Order (Routine); Ordered 05/19/23 Ordered By: Nate Valladares/Other Patient Handouts: Managing Type 2 Diabetes Admission Data Admit Date/Time: 05/15/23 21:49 Attending Provider: Nate Lebron Admit Provider: Sean Cervantes Primary Care Provider: Radha Riddle Other Providers: Sean Cervantes
== END 2023-05-19 16:47 | disposition home health service (06) | DRG 637 ==
LOC: ED 17:16 → EDINP 21:49 → 2S 05-17 14:31